=== PATIENT | female | born 1970 | race American Indian/Alaskan Native ===

== ENCOUNTER 2020-07-20 13:53 | Emergency (ER) | payer MEDICARE ==
--- NOTE | 2020-07-20 14:56 | Event Note ---
ED Screening Note ED Screening Note: SI HI that began few days ago states she has attempted overdose before states that she plans to do it again states she wants to hurt her two older sons says she was last in a psych facility last month non smoker +ETOH, socially no drug use This initial assessment/diagnostic orders/clinical plan/treatment(s) is/are subject to change based on patients health status, clinical progression and re- assessment by fellow clinical providers in the ED. Further treatment and workup at subsequent clinical providers discretion. Patient/guardian urged not to elope from the ED as their condition may be serious if not clinically assessed and managed. Initial orders include: mental health clearance 1013 called charge nurse Malik, pt needs room [facility]
[2020-07-20 15:54] LABS: Basophils % (Auto) 0.2 % (0.0-1.8); Hematocrit 34.6 % (30.3-42.9); Hemoglobin 11.6 gm/dl (10.1-14.3); Lymphocytes # (Auto) 1.2 K/mm3 (1.2-5.4); Lymphocytes % (Auto) 16.7 % (13.4-35.0); Mean Corpuscular HGB Conc 33 % (30-34); Mean Corpuscular Volume 88 fl (79-97); Monocytes # (Auto) 0.2 K/mm3 (0.0-0.8); Monocytes % (Auto) 2.8 % (0.0-7.3); Platelet Count 285 K/mm3 (140-440); Red Blood Count 3.92 M/mm3 (3.65-5.03); Red Cell Distribution Width 15.1 % (13.2-15.2)
[2020-07-20 16:07] LABS: Alanine Aminotransferase 9 units/L (7-56); Albumin 4.2 g/dL (3.9-5); Blood Urea Nitrogen 10 mg/dL (7-17); Calcium 9.6 mg/dL (8.4-10.2); Hemolysis Index 8
[2020-07-20 16:14] LABS: BUN/Creatinine Ratio 14
--- NOTE | 2020-07-20 17:27 | Emergency Department Report ---
ED Psych HPI - General Chief Complaint: Psych Stated Complaint: ANXIETY/DEPRESSION Time Seen by Provider: 07/20/20 16:20 Source: patient, EMS Mode of arrival: Ambulatory - History of Present Illness Initial Comments: Patient is a 50-year-old female that presents emergency room with multiple psychiatric complaints. Patient states that she is having suicidal and homicidal ideations, depression, anxiety. Patient states that her suicidal ideations and involve a plan to overdose with pills. Patient states she is attempted suicide in the past. Patient states she is having homicidal thoughts towards her 2 older sons and the rest of her family. Patient states her family is treating her bad right now. Patient states her family dropped off at a hotel and left her alone. Patient denies any physical complaints. Patient states that her symptoms are worsening. Patient denies hallucinations. Patient denies recent travel. Patient denies recent international travel. Pat ient denies exposure to the novel coronavirus. Patient denies sick contacts. Patient denies fever and chills. Patient denies cough. Patient denies diarrhea. Patient denies coming in contact with anybody with symptoms of the novel coronavirus. MD Complaint: suicidal ideation, feels depressed -: Sudden Associated Psychiatric Symptoms: depression, suicidal ideation, homicidal ideation, racing thoughts History of same: Yes Quality: constant Improves With: medication, therapy Worsens With: other Context: significant life stressor Associated Symptoms: denies other symptoms If Self Harm: admits thoughts of, has plan - Related Data Home Medications Medication Instructions Recorded Confirmed Last Taken Ibuprofen [Motrin] 800 mg PO Q8HR PRN 07/20/20 07/20/20 Unknown Quetiapine Fumarate [SEROquel] 400 mg PO QHS 07/20/20 07/20/20 Unknown Allergies Allergy/AdvReac Type Severity Reaction Status Date / Time No Known Allergies Allergy Verified 11/04/14 14:23 ED Review of Systems ROS: Stated complaint: ANXIETY/DEPRESSION Other details as noted in HPI Constitutional: denies: chills, fever Eyes: denies: eye pain, eye discharge, vision change ENT: denies: ear pain, throat pain Respiratory: denies: cough, shortness of breath, wheezing Cardiovascular: denies: chest pain, palpitations Endocrine: no symptoms reported Gastrointestinal: denies: abdominal pain, nausea, diarrhea Genitourinary: denies: urgency, dysuria, discharge Musculoskeletal: denies: back pain, joint swelling, arthralgia Skin: denies: rash, lesions Neurological: denies: headache, weakness, paresthesias Psychiatric: as per HPI, anxiety, depression, homicidal thoughts, suicidal thoughts. denies: auditory hallucinations, visual hallucinations Hematological/Lymphatic: denies: easy bleeding, easy bruising ED Past Medical Hx - Past Medical History Previous Medical History?: Yes Hx Psychiatric Treatment: Yes (DEPRESSION) - Surgical History Past Surgical History?: Yes Additional Surgical History: HERNIA REPAIR - Family History Family history: no significant - Social History Smoking Status: Never Smoker Substance Use Type: None - Medications Home Medications: Home Medications Medication Instructions Recorded Confirmed Last Taken Type Ibuprofen [Motrin] 800 mg PO Q8HR PRN 07/20/20 07/20/20 Unknown History Quetiapine Fumarate [SEROquel] 400 mg PO QHS 07/20/20 07/20/20 Unknown History ED Physical Exam - General Limitations: No Limitations General appearance: alert, in no apparent distress - Head Head exam: Present: atraumatic, normocephalic - Eye Eye exam: Present: normal appearance - ENT ENT exam: Present: mucous membranes moist - Neck Neck exam: Present: normal inspection - Respiratory Respiratory exam: Present: normal lung sounds bilaterally. Absent: respiratory distress, wheezes, rales - Cardiovascular Cardiovascular Exam: Present: regular rate, normal rhythm. Absent: systolic murmur, diastolic murmur, rubs, gallop - GI/Abdominal GI/Abdominal exam: Present: soft, normal bowel sounds - Extremities Exam Extremities exam: Present: normal inspection - Back Exam Back exam: Present: normal inspection - Neurological Exam Neurological exam: Present: alert, oriented X3 - Psychiatric Psychiatric exam: Present: normal affect, normal mood - Skin Skin exam: Present: warm, dry, intact, normal color. Absent: rash ED Course Vital Signs 07/20/20 07/20/20 07/20/20 14:58 15:28 19:30 Temperature 98.1 F 97.6 F 98.3 F Pulse Rate 88 96 H 102 H Respiratory 18 20 20 Rate Blood Pressure 146/80 Blood Pressure 133/72 120/74 [Left] O2 Sat by Pulse 100 98 100 Oximetry 07/20/20 07/20/20 07/21/20 21:54 22:54 01:25 Temperature 98.0 F Pulse Rate 90 Respiratory 18 18 16 Rate Blood Pressure Blood Pressure 126/71 [Left] O2 Sat by Pulse 100 Oximetry 07/21/20 07/21/20 07:52 20:03 Temperature 97.3 F L 98.4 F Pulse Rate 71 81 Respiratory 20 18 Rate Blood Pressure Blood Pressure 132/73 126/86 [Left] O2 Sat by Pulse 97 97 Oximetry - Reevaluation(s) Reevaluation #1: Initial evaluation done. Patient was already placed on 1013 in triage. Patient will remain in the ER hold and on on 1013. Patient will have labs done. 07/20/20 16:25 Reevaluation #2: Patient is medically cleared. Patient will remain in the ER as an ER hold. Patient is already on a 1013. Patient's final disposition will come from our mental health team. 07/20/20 22:50 Reevaluation #3: Patient has been examined to the general psych floor. Patient will be discharged from the ER and transported directly to our general psych floor. 07/21/20 23:12 ED Medical Decision Making - Lab Data Result diagrams: 07/20/20 15:26 07/20/20 15:26 - Medical Decision Making Patient is a 50-year-old female that presents emergency room with complaints of SI, HI, anxiety, depression. Patient was placed on a 1013 in triage. Patient's placed on a ER hold. Mental health evaluation ordered. Patient had labs done. Patient's labs are essentially unremarkable and patient is medically cleared. Patient is cleared from medical standpoint however the patient's final disposition will come from our psychiatry and mental health team. - Differential Diagnosis Suicidal ideation, homicidal ideation, depression, anxiety Critical care attestation.: If time is entered above; I have spent that time in minutes in the direct care of this critically ill patient, excluding procedure time. ED Disposition Clinical Impression: Suicidal ideations, Homicidal ideations, Anxiety Depression Qualifiers: Depression Type: unspecified Qualified Code(s): F32.9 - Major depressive disorder, single episode, unspecified Disposition: DC-01 TO HOME OR SELFCARE Is pt being admited?: No Does the pt Need Aspirin: No Condition: Stable Instructions: Managing Anxiety, Adult Additional Instructions: Patient to be discharged from the ER intake and directly to our geriatric psych floor. Referrals: PRIMARY CARE, [Primary Care Provider] - 2-3 Days Time of Disposition: 22:52
[2020-07-20 20:53] LABS: Bilirubin,Urine NEG (Negative); Blood,Urine NEG (Negative); Color,Urine Yellow (Yellow); Mucus,Urine FEW /HPF; Urobilinogen,Urine < 2.0 mg/dL (<2.0)
[2020-07-20 21:08] LABS: Amphetamine Screen,Urine Negative; Benzodiazepines Screen,Urine Negative; Cannabinoid Screen,Urine Negative; Cocaine Screen,Urine Negative; Methadone Screen,Urine Negative; Opiate Screen,Urine Negative
[2020-07-20] MEDS: IBUPROFEN 800 MG TAB PO PRN (21:54)
[2020-07-20] MEDS: QUEtiapine 200 MG TAB PO SCH (21:55)
--- NOTE | 2020-07-21 10:04 | Consultation ---
History of Present Illness - Reason for Consult Consult date: 07/21/20 Reason for consult: SI/HI - History of Present Psychiatric Illness Delmy Rodriguez is a 50y/o patient who states she came to the hospital because she felt like hurting her family and her sons. During my interview with the patient today, she is a/o x 3. She is talkative. She is cooperative. The patient says "I want to hurt my family members because they are not supporting my right now." The patient then says "I don't want to live either. They are making things worse for me." The patient says her "thoughts are richardson." She says "I can't control them." She denies illicit drug use. She says she "drinks about 2 to 3 beers daily." The patient denies hallucinations of any kind. PAST PSYCHIATRIC HISTORY Diagnoses: bipolar, depression, borderline personality disorder, anxiety Suicide attempts or Self-harm behavior: Yes Prior psychiatric hospitalizations: Yes Substance Abuse history: alcohol Previous psychiatric medications tried: depakote, seroquel Outpatient treatment: Yes PAST MEDICAL HISTORY: None reported Family Psychiatric History: None reported or documented SOCIAL HISTORY Marital Status: Single Living Arrangements: Homeless Employment Status: Disabled Access to guns/weapons: None reported Education: high school History of Abuse: None reported Legal History: denies REVIEW OF SYSTEMS Constitutional: Negative for weight loss ENT: Negative for stridor Respiratory: Negative for cough or hemoptysis All other systems reviewed and are negative MENTAL STATUS EXAMINATION General Appearance and Behavior: Age appropriate, good hygiene, wearing appropriate clothes, good eye contact Cooperation: Participating/engaged Psychomotor Behavior: Psychomotor normal Mood: "irritable" Affect and affective range: Congruent with mood Thought Process: logical Thought Content: hopelessness Speech: Normal rate, volume and rhythm Suicidal Ideation: Yes Homicidal Ideation: Yes Impulse Control: Impaired Insight and Judgment: Limited insight and judgment Memory: Normal Attention: Normal Orientation: Alert, oriented Assessment and Plan (1) Major depressive disorder) Current Visit: Yes Status: Acute TREATMENT Continue Seroquel Start Depakote DR 250mg po BID Start Prozac 10mg po daily Sitter: Defer to primary Medical: Per primary Disposition: Recommend inpatient psychiatric treatment. Will follow. Thank you for this consult. Medications and Allergies Allergies Allergy/AdvReac Type Severity Reaction Status Date / Time No Known Allergies Allergy Verified 11/04/14 14:23 Home Medications Medication Instructions Recorded Confirmed Last Taken Type Ibuprofen [Motrin] 800 mg PO Q8HR PRN 07/20/20 07/20/20 Unknown History Quetiapine Fumarate [SEROquel] 400 mg PO QHS 07/20/20 07/20/20 Unknown History Active Meds: Active Medications Ibuprofen (Ibuprofen) 800 mg PO TID PRN PRN Reason: Pain , Severe (7-10) Last Admin: 07/20/20 21:54 Dose: 800 mg Documented by: Quetiapine Fumarate (Seroquel) 400 mg PO QHS [facility] Last Admin: 07/20/20 21:55 Dose: 400 mg Documented by: Mental Status Exam - Vital signs Last Vital Signs Temp 97.3 F L 07/21/20 07:52 Pulse 71 07/21/20 07:52 Resp 20 07/21/20 07:52 BP 132/73 07/21/20 07:52 Pulse Ox 97 07/21/20 07:52 Results Result Diagrams: 07/20/20 15:26 07/20/20 15:26 Abnormal lab results 07/20/20 07/20/20 07/20/20 Range/Units 15:26 15:26 15:26 Seg Neutrophils % 80.3 H (40.0-70.0) % Salicylates < 0.3 L (2.8-20.0) mg/dL Acetaminophen 5.0 L (10.0-30.0) ug/mL All other labs normal.
[2020-07-21] MEDS: DIVALPROEX DR 250 MG TAB PO SCH ×2 (11:20→22:00)
[2020-07-21] MEDS: IBUPROFEN 800 MG TAB PO PRN ×2 (11:20→21:54)
[2020-07-21] MEDS: FLUoxetine 10 MG TAB PO SCH ×2 (11:20→11:23)
[2020-07-21 20:03] VITALS: BP 126/86
[2020-07-21] MEDS: QUEtiapine 200 MG TAB PO SCH (21:54)
== END 2020-07-21 23:16 | disposition home or self-care (01) ==
LOC: ED 13:53
DX: F41.9 Anxiety disorder, unspecified (principal); F32.9 Major depressive disorder, single episode, unspecified; Z98.890 Other specified postprocedural states; Z79.899 Other long term (current) drug therapy
CPT/HCPCS: 36415; 80053; 80307; 81001; 85025; 99284; U0003; 80320; G0480

== ENCOUNTER 2020-07-21 00:28 | Inpatient (IN) | payer MEDICARE ==
[2020-07-22] MEDS: traZODone 50 MG TAB PO SCH ×2 (03:25→21:25)
--- NOTE | 2020-07-22 07:31 | History and Physical Report ---
GP History & Physical - History of Present Illness Date of admission: 07/21/20 Date of Examination: 07/22/20 Reason for Admission: Danger to self, Severe anxiety/depression History of Present Illness: Per ED Provider Patient is a 50-year-old female that presents emergency room with multiple psychiatric complaints. Patient states that she is having suicidal and homicidal ideations, depression, anxiety. Patient states that her suicidal idea tions and involve a plan to overdose with pills. Patient states she is attempted suicide in the past. Patient states she is having homicidal thoughts towards her 2 older sons and the rest of her family. Patient states her family is treating her bad right now. Patient states her family dropped off at a hotel and left her alone. Patient denies any physical complaints. Patient states that her symptoms are worsening. Patient denies hallucinations. PSYCH HPI Patient is a 50 year single unemployed currently on SSI and homeless female with past psychiatric history of Depression, Anxiety and Borderline Personality disorder and past medical history chronic low back pain who presents to the ED with complaints of SI, HI due to depression with plan to overdose. Per patient, she reports she has been staying in a hotel since her last discharge from her last psychiatric admission. She says she is out of money, cant pay hotel bills and she had a mental and emotional breakdown and homicidal thoughts towards her family because she feels they do no care and support her enough most especially her older children. Patient reports she was in a program, was discharged last month, was not assigned a sample case porter in which she thought she would so they can help her with getting a place to stay. She attributes her mental health problems to social issues and getting a place of her own so she can be more independent but she cant do it on her own. Patient also endorses to alcohol use. PAST PSYCHIATRIC HISTORY Diagnoses: bipolar, depression, borderline personality disorder, anxiety Suicide attempts or Self-harm behavior: Yes Prior psychiatric hospitalizations: Yes Substance Abuse history: alcohol Previous psychiatric medications tried: depakote, seroquel Outpatient treatment: Yes PAST MEDICAL HISTORY: None reported Family Psychiatric History: None reported or documented SOCIAL HISTORY Marital Status: Single Living Arrangements: Homeless Employment Status: Disabled Access to guns/weapons: None reported Education: high school History of Abuse: None reported Legal History: denies REVIEW OF SYSTEMS Constitutional: Negative for weight loss ENT: Negative for stridor Respiratory: Negative for cough or hemoptysis All other systems reviewed and are negative MENTAL STATUS EXAMINATION General Appearance and Behavior: Age appropriate, good hygiene, wearing appropriate clothes, good eye contact Cooperation: Participating/engaged Psychomotor Behavior: Psychomotor normal Mood: "irritable" Affect and affective range: Congruent with mood Thought Process: logical Thought Content: hopelessness Speech: Normal rate, volume and rhythm Suicidal Ideation: Yes Homicidal Ideation: Yes Impulse Control: Impaired Insight and Judgment: Limited insight and judgment Memory: Normal Attention: Normal Orientation: Alert, oriented Assessment and Plan - Psychiatric problem (1) MDD (major depressive disorder) Current Visit: Yes Status: Acute (2) Alcohol abuse Current Visit: Yes Status: Acute Treatment Plan home meds restarted Patient admitted for inpatient psychiatric evaluation, medication adjustment and close monitoring The patient's behavior, mood, sleep and appetite will be closely monitored. Patient enrolled in individual and group therapeutic sessions and encouraged to attend. Patient provided with a safe and structured environment. Patient's physical health needs will be addressed by the Hospitalist. Hospitalist Consulted Labs including CBC, CMP, Lipid profile and Hemoglobin A1C levels ordered for baseline reference Social Assessment will be completed and the Saxophone Player will work with patient and family to ensure a suitable and safe disposition Medication adjustment will be made as clinically indicated Usual Wellness Pentecostalism/Preservation: - Start Trazodone 50 mg po QHS - Start Melatonin 5 mg po QHS to promote circadian rhythm - Start [place]-3 for brain health, reduce impulsivity, and as adjunctive treatment for mood disorder, continue upon discharge given overall benefits. - Start B1 prophylaxis with 200 mg po for 5 days The patient agreed on the treatment plan, understood the risk, benefit, alternative treatment, potential consequence of no treatment, and gave informed consent. Initial Certification I certify that the inpatient psychiatric services are required for treatment that could reasonably be expected to improve the patient's condition for aggression and irritability Estimated days: 7 Post hospital care: primary care provider, psychiatric provider The case was staffed with Dr. Haley Legal Status: Voluntary Reaction to Hospitalization: Accepting Legal Status: Voluntary Patient Problems: Current Active Problems Alcohol abuse (Acute) MDD (major depressive disorder) (Acute) Reaction to Hospitalization: Accepting Medications and Allergies Allergies Allergy/AdvReac Type Severity Reaction Status Date / Time No Known Allergies Allergy Verified 11/04/14 14:23 Home Medications Medication Instructions Recorded Confirmed Last Taken Type Ibuprofen [Motrin] 800 mg PO Q8HR PRN 07/20/20 07/22/20 Unknown History Quetiapine Fumarate [SEROquel] 400 mg PO QHS 07/20/20 07/22/20 Unknown History Budesonide/Formoterol Fumarate 1 puff INHALATION UNK 07/22/20 07/22/20 Unknown History [Symbicort 160-4.5 Mcg Inhaler] busPIRone [Buspar] 5 mg PO HS 07/22/20 07/22/20 Unknown History predniSONE [Deltasone] 20 mg PO UNK 07/22/20 07/22/20 Unknown History Active Meds: Active Medications Trazodone HCl (Trazodone 50 Mg Tab) 50 mg PO QHS [facility]O Last Admin: 07/22/20 03:25 Dose: Not Given Documented by: Results - Results Labs/Vitals: Laboratory Last Values POC Glucose 86 mg/dL (70-105) 07/22/20 01:54 Assessment and Plan - Psychiatric problem (1) MDD (major depressive disorder) Current Visit: Yes Status: Acute (2) Alcohol abuse Current Visit: Yes Status: Acute Physician Certification - Certification Statement Physician Certification Statement: This is an acknowledgement statement that JORDIN FRANCISCO is a 50 year old F who requires inpatient psychiatric admission for treatment which could reasonably be expected to improve the patient's condition for Estimated period of time patient will need to remain in the hospital: [ ] Plan for post-hospital care: [ ]
[2020-07-22] MEDS ORDERED: IBUPROFEN 800 MG TAB PO PRN (08:53)
[2020-07-22] MEDS ORDERED: IBUPROFEN 600 MG TAB PO PRN (10:00)
[2020-07-22] MEDS: VALPROIC ACID 250 MG CAP PO SCH ×2 (10:25→21:25)
[2020-07-22] MEDS: ACETAMINOPHEN 325 MG TAB PO PRN ×2 (10:25→21:24)
--- NOTE | 2020-07-22 12:13 | Consultation ---
History of Present Illness - Reason for Consult Consult date: 07/22/20 Medical Management Requesting physician: COCO RAYO - History of Present Illness 50 YO Female with Obesity with Anxiety and Depression admitted to [facility] for Psychiatric Stabilization. Patient seen and evaluated in the recreation room. Patient appears comfortable. Patient denies fever, chills, chest pain, palpitation, productive cough, skin rash, recent ill contacts, or known exposure to COVID-19. Patient resting comfortably. No reported nursing events. Past History Past Medical History: other (See HPI) Past Surgical History: hernia repair Social history: single. denies: smoking, alcohol abuse, prescription drug abuse Family history: hypertension Medications and Allergies Allergies Allergy/AdvReac Type Severity Reaction Status Date / Time No Known Allergies Allergy Verified 11/04/14 14:23 Home Medications Medication Instructions Recorded Confirmed Last Taken Type Ibuprofen [Motrin] 800 mg PO Q8HR PRN 07/20/20 07/22/20 Unknown History Quetiapine Fumarate [SEROquel] 400 mg PO QHS 07/20/20 07/22/20 Unknown History Budesonide/Formoterol Fumarate 1 puff INHALATION UNK 07/22/20 07/22/20 Unknown History [Symbicort 160-4.5 Mcg Inhaler] busPIRone [Buspar] 5 mg PO 07/22/20 07/22/20 Unknown History predniSONE [Deltasone] 20 mg PO UNK 07/22/20 07/22/20 Unknown History Active Meds: Active Medications Acetaminophen (Acetaminophen 325 Mg Tab) 650 mg PO Q12HR PRN PRN Reason: Pain, Mild (1-3) Last Admin: 07/22/20 10:25 Dose: 650 mg Documented by: Ibuprofen (Ibuprofen 600 Mg Tab) 600 mg PO BID PRN PRN Reason: Pain , Severe (7-10) Trazodone HCl (Trazodone 50 Mg Tab) 50 mg PO QHS [facility] Last Admin: 07/22/20 03:25 Dose: Not Given Documented by: Valproic Acid (Valproic Acid 250 Mg Cap) 500 mg PO BID [facility] Last Admin: 07/22/20 10:25 Dose: 500 mg Documented by: Review of Systems Constitutional: no weight loss, no weight gain, no fever, no sweats Ears, nose, mouth and throat: no ear pain, no ear discharge, no tinnitis, no nose pain, no nasal congestion Breasts: no change in shape, no swelling, no mass Cardiovascular: no chest pain, no orthopnea, no palpitations, no syncope Respiratory: no cough, no excessive sputum, no hemoptysis Gastrointestinal: no nausea, no vomiting, no diarrhea, no constipation, no hematemesis Genitourinary Female: no pelvic pain, no dysuria Rectal: no pain, no incontinence, no bleeding Musculoskeletal: no neck stiffness, no neck pain, no shooting arm pain, no arm numbness/tingling, no shooting leg pain Integumentary: no rash, no pruritis, no redness, no sores Neurological: no transient paralysis, no weakness, no parathesias, no tingling, no seizures, no tremors Psychiatric: no memory loss, no insomnia, no change in appetite Endocrine: no excessive thirst, no polydipsia, no nocturia, no excessive sweating Hematologic/Lymphatic: no easy bruising, no easy bleeding Allergic/Immunologic: no urticaria, no wheezing Exam - Constitutional Vitals: Temp Pulse Resp BP Pulse Ox 98.5 F 95 H 18 109/69 100 07/22/20 08:48 07/22/20 08:48 07/22/20 08:48 07/22/20 08:48 07/22/20 08:48 General appearance: Present: obese - EENT Eyes: Present: PERRL ENT: hearing intact, clear oral mucosa - Neck Neck: Present: supple, normal ROM - Respiratory Respiratory effort: normal Respiratory: bilateral: CTA - Cardiovascular Heart Sounds: Present: S1 & S2. Absent: rub, click - Extremities Extremities: pulses symmetrical, No edema Peripheral Pulses: within normal limits - Abdominal General gastrointestinal: Present: soft, non-tender, non-distended, normal bowel sounds Female genitourinary: Present: normal - Integumentary Integumentary: Present: clear, warm, dry - Musculoskeletal Musculoskeletal: gait normal, strength equal bilaterally - Psychiatric Psychiatric: appropriate mood/affect, intact judgment & insight - Neurologic Neurologic: CNII-XII intact, moves all extremities Results - Labs CBC & Chem 7: 07/23/20 10:18 07/23/20 10:18 Assessment and Plan - Patient Problems (1) Anxiety Current Visit: No Status: Acute Plan to address problem: Supportive care, benzodiazepine therapy as clinically indicated. (2) Obesity (BMI 30.0-34.9) Current Visit: Yes Status: Acute Plan to address problem: Balanced diet, increase physical activity at discharge, supportive care, outpatient pulmonary follow-up for sleep study.
--- NOTE | 2020-07-23 09:12 | Progress Note ---
Subjective Date of service: 07/23/20 Principal diagnosis: (1) MDD (major depressive disorder) Subjective Comment: Psych Nurse: Last evening the patient was complaining about everything she could think of. When she observed other patients "getting things" she would cause behavior to get attention. She complained that staff was treating her differently than other patients due to her skin color. she would ask to talk with the staff", privately. Last night the patient was restless. She slept off anod on. Will continue to monitor patient for safety PSYCH HPI Patient seen this a.m., review of nursing notes shows patient has been complaining mostly about everything and very demanding. Patient says she is got a lot of stuff she wants to tell me this morning, says she is very frustrated mostly about arthritis and her pain. Patient states she would like to request her room to be changed and move closer to the nurses station because she does not like to walk that far from where the current location is. Patient also complained that her family is very dysfunctional, she is to older children does not want her to stay with them, and she is having homicidal thoughts towards her children. Patient also reports not being allowed to use the phone all day yesterday states that she was speaking with her insurance company about addressing some of her social needs especially getting assigned a bilingual patient support caseworker. Patient also complained about the care aspirin she received in the ED, and the transition of the care to this unit, patient also complained about her belongings that she was not given a checklist of what she came in with to the hospital. I informed patient that I can get the patient service reps for her to make any complaints about the care she received in the ED, and I will also discussed with the nurses in making her room changed to address needs specific to her pain. Also informed patient to be respectful of others because she cannot be the only one using the phone all day or the patient would also want to communicate with the family members but she is using the phone to talk with insurance company in which she could have done that before coming to the hospital. Patient is very repetitive in a complaints talked about how she is older than me, she has more experience, that she does not have any problem but other people do not understand her. Reason for continuing inpatient psychiatric hospitalization: Concern for malingering behavior, dependent type personality disorder, and persistent homicidal thoughts towards her older children. Patient started on Seroquel, Cymbalta and will continue current medication REVIEW OF SYSTEMS Constitutional: Negative for weight loss ENT: Negative for stridor Respiratory: Negative for cough or hemoptysis All other systems reviewed and are negative MENTAL STATUS EXAMINATION General Appearance and Behavior: Age appropriate, good hygiene, wearing appropriate clothes, good eye contact Cooperation: Participating/engaged Psychomotor Behavior: Psychomotor normal Mood: "irritable" Affect and affective range: Congruent with mood Thought Process: illogical, circumstantial Thought Content: Paranoid Speech: Normal rate, volume and rhythm Suicidal Ideation: No Homicidal Ideation: Yes Impulse Control: Impaired Insight and Judgment: Limited insight and judgment Memory: Normal Attention: Normal Orientation: Alert, oriented Assessment and Plan - Psychiatric problem (1) MDD (major depressive disorder) Current Visit: Yes Status: Acute (2) Alcohol abuse Current Visit: Yes Status: Acute Treatment Plan Patient was started on Seroquel, started on Cymbalta and home meds restarted Patient admitted for inpatient psychiatric evaluation, medication adjustment and close monitoring The patient's behavior, mood, sleep and appetite will be closely monitored. Patient enrolled in individual and group therapeutic sessions and encouraged to attend. Patient provided with a safe and structured environment. Patient's physical health needs will be addressed by the Hospitalist. Hospitalist Consulted Labs including CBC, CMP, Lipid profile and Hemoglobin A1C levels ordered for baseline reference Social Assessment will be completed and the Slag Production Worker will work with patient and family to ensure a suitable and safe disposition Medication adjustment will be made as clinically indicated Usual Wellness Temple/Preservation: - Start Trazodone 50 mg po QHS - Start Melatonin 5 mg po QHS to promote circadian rhythm - Start Stuart-3 for brain health, reduce impulsivity, and as adjunctive treatment for mood disorder, continue upon discharge given overall benefits. - Start B1 prophylaxis with 200 mg po for 5 days The patient agreed on the treatment plan, understood the risk, benefit, alternative treatment, potential consequence of no treatment, and gave informed consent. Initial Certification I certify that the inpatient psychiatric services are required for treatment that could reasonably be expected to improve the patient's condition for aggression and irritability Estimated days: 6 Post hospital care: primary care provider, psychiatric provider The case was staffed with Dr. Haley Legal Status: Voluntary Reaction to Hospitalization: Accepting Legal Status: Voluntary Patient Problems: Current Active Problems Assessment and Plan - Patient Problems (1) MDD (major depressive disorder) Current Visit: Yes Status: Acute (2) Alcohol abuse Current Visit: Yes Status: Acute Medications and Allergies Allergies Allergy/AdvReac Type Severity Reaction Status Date / Time No Known Allergies Allergy Verified 11/04/14 14:23 Home Medications Medication Instructions Recorded Confirmed Last Taken Type Ibuprofen [Motrin] 800 mg PO Q8HR PRN 07/20/20 07/22/20 Unknown History Quetiapine Fumarate [SEROquel] 400 mg PO QHS 07/20/20 07/22/20 Unknown History Budesonide/Formoterol Fumarate 1 puff [facility] 07/22/20 07/22/20 Unknown History [Symbicort 160-4.5 Mcg Inhaler] busPIRone [Buspar] 5 mg PO 07/22/20 07/22/20 Unknown History predniSONE [Deltasone] 20 mg PO K 07/22/20 07/22/20 Unknown History Active Meds: Active Medications Acetaminophen (Acetaminophen 325 Mg Tab) 650 mg PO Q12HR PRN PRN Reason: Pain, Mild (1-3) Last Admin: 07/22/20 21:24 Dose: 650 mg Documented by: Ibuprofen (Ibuprofen 600 Mg Tab) 600 mg PO BID PRN PRN Reason: Pain , Severe (7-10) Trazodone HCl (Trazodone 50 Mg Tab) 50 mg PO QHS [facility] Last Admin: 07/22/20 21:25 Dose: Not Given Documented by: Valproic Acid (Valproic Acid 250 Mg Cap) 500 mg PO BID [facility] Last Admin: 07/22/20 21:25 Dose: Not Given Documented by: Results - Results Labs/Vitals: Laboratory Last Values POC Glucose 86 mg/dL (70-105) 07/22/20 01:54 Last Vital Signs Temp 98.6 F 07/23/20 08:38 Pulse 82 07/23/20 08:38 Resp 18 07/23/20 08:38 BP 112/72 07/23/20 08:38 Pulse Ox 100 07/22/20 22:00
[2020-07-23] MEDS: VALPROIC ACID 250 MG CAP PO SCH ×2 (09:13→21:14)
[2020-07-23] MEDS: ACETAMINOPHEN 325 MG TAB PO PRN (09:39)
[2020-07-23 10:38] LABS: Basophils % (Auto) 0.5 % (0.0-1.8); Eosinophils % (Auto) 0.6 % (0.0-4.3); Hematocrit 35.5 % (30.3-42.9); Hemoglobin 11.6 gm/dl (10.1-14.3); Lymphocytes # (Auto) 2.2 K/mm3 (1.2-5.4); Lymphocytes % (Auto) 33.1 % (13.4-35.0); Mean Corpuscular HGB Conc 33 % (30-34); Mean Corpuscular Volume 89 fl (79-97); Monocytes # (Auto) 0.6 K/mm3 (0.0-0.8); Monocytes % (Auto) 8.4 % (0.0-7.3); Platelet Count 239 K/mm3 (140-440); Red Cell Distribution Width 15.2 % (13.2-15.2)
[2020-07-23 11:01] LABS: Alanine Aminotransferase 9 units/L (7-56); Albumin 3.9 g/dL (3.9-5); BUN/Creatinine Ratio 18; Blood Urea Nitrogen 14 mg/dL (7-17); Calcium 9.6 mg/dL (8.4-10.2); Chol/HDL Ratio 3.46 %; HDL Cholesterol 60 mg/dL (40-59); Hemolysis Index 6; LDL Cholesterol,Direct 148 mg/dL (50-130)
[2020-07-23] MEDS: DULoxetine 30 MG CAP PO SCH (11:26)
--- NOTE | 2020-07-23 20:22 | Progress Note ---
Assessment and Plan - Patient Problems (1) Anxiety Current Visit: No Status: Acute Plan to address problem: Supportive care, benzodiazepine therapy as clinically indicated. (2) Obesity (BMI 30.0-34.9) Current Visit: Yes Status: Acute Plan to address problem: Balanced diet, increase physical activity at discharge, supportive care, outpatient pulmonary follow-up for sleep study. History Interval history: 50 YO Female with Obesity with Anxiety and Depression admitted to [facility] for Psychiatric Stabilization. Patient seen and evaluated in the recreation room. Patient appears comfortable. Patient denies any new complaints at this time. Patient resting comfortably. No reported nursing events. Hospitalist Physical - Constitutional Vitals: Temp Pulse Resp BP Pulse Ox 98.6 F 82 18 112/72 100 07/23/20 08:38 07/23/20 08:38 07/23/20 08:38 07/23/20 08:38 07/22/20 22:00 General appearance: Present: obese - EENT Eyes: Present: PERRL ENT: hearing intact - Neck Neck: Present: supple - Respiratory Respiratory effort: normal Respiratory: bilateral: CTA - Cardiovascular Rhythm: regular Heart Sounds: Present: S1 & S2 - Extremities Extremities: no ischemia Peripheral Pulses: within normal limits - Abdominal General gastrointestinal: soft, non-tender, non-distended - Integumentary Integumentary: Present: clear, dry - Psychiatric Psychiatric: cooperative - Neurologic Neurologic: CNII-XII intact Results - Labs CBC & Chem 7: 07/23/20 10:18 07/23/20 10:18 Labs: Laboratory Last Values WBC 6.6 K/mm3 (4.5-11.0) 07/23/20 10:18 RBC 4.00 M/mm3 (3.65-5.03) 07/23/20 10:18 Hgb 11.6 gm/dl (10.1-14.3) 07/23/20 10:18 Hct 35.5 % (30.3-42.9) 07/23/20 10:18 MCV 89 fl (79-97) 07/23/20 10:18 MCH 29 pg (28-32) 07/23/20 10:18 MCHC 33 % (30-34) 07/23/20 10:18 RDW 15.2 % (13.2-15.2) 07/23/20 10:18 Plt Count 239 K/mm3 (140-440) 07/23/20 10:18 Lymph % (Auto) 33.1 % (13.4-35.0) 07/23/20 10:18 Miner % (Auto) 8.4 % (0.0-7.3) H 07/23/20 10:18 Eos % (Auto) 0.6 % (0.0-4.3) 07/23/20 10:18 Baso % (Auto) 0.5 % (0.0-1.8) 07/23/20 10:18 Lymph # (Auto) 2.2 K/mm3 (1.2-5.4) 07/23/20 10:18 Miner # (Auto) 0.6 K/mm3 (0.0-0.8) 07/23/20 10:18 Eos # (Auto) 0.0 K/mm3 (0.0-0.4) 07/23/20 10:18 Baso # (Auto) 0.0 K/mm3 (0.0-0.1) 07/23/20 10:18 Seg Neutrophils % 57.4 % (40.0-70.0) 07/23/20 10:18 Seg Neutrophils # 3.8 K/mm3 (1.8-7.7) 07/23/20 10:18 Sodium 138 mmol/L (137-145) 07/23/20 10:18 Potassium 4.6 mmol/L (3.6-5.0) 07/23/20 10:18 Chloride 100.8 mmol/L (98-107) 07/23/20 10:18 Carbon Dioxide 33 mmol/L (22-30) H D 07/23/20 10:18 Anion Gap 9 mmol/L 07/23/20 10:18 BUN 14 mg/dL (7-17) 07/23/20 10:18 Creatinine 0.8 mg/dL (0.6-1.2) 07/23/20 10:18 Estimated GFR > 60 ml/min 07/23/20 10:18 BUN/Creatinine Ratio 18 % 07/23/20 10:18 Glucose 85 mg/dL (65-100) 07/23/20 10:18 POC Glucose 86 mg/dL (70-105) 07/22/20 01:54 Hemoglobin A1c 5.3 % (4-6) 07/23/20 10:18 Calcium 9.6 mg/dL (8.4-10.2) 07/23/20 10:18 Total Bilirubin 0.30 mg/dL (0.1-1.2) 07/23/20 10:18 AST 12 units/L (5-40) 07/23/20 10:18 ALT 9 units/L (7-56) 07/23/20 10:18 Alkaline Phosphatase 56 units/L (35-129) 07/23/20 10:18 Total Protein 7.1 g/dL (6.3-8.2) 07/23/20 10:18 Albumin 3.9 g/dL (3.9-5) 07/23/20 10:18 Albumin/Globulin Ratio 1.2 % 07/23/20 10:18 Triglycerides 169 mg/dL (2-149) H 07/23/20 10:18 Cholesterol 208 mg/dL (50-199) H 07/23/20 10:18 LDL Cholesterol Direct 148 mg/dL (50-130) H 07/23/20 10:18 HDL Cholesterol 60 mg/dL (40-59) H 07/23/20 10:18 Cholesterol/HDL Ratio 3.46 % 07/23/20 10:18 Irwin/IV: Voiding Method Toilet Active Medications - Current Medications Current Medications: Generic Name Dose Route Start Last Admin Trade Name Freq PRN Reason Stop Dose Admin Acetaminophen 650 mg 07/22/20 09:30 07/23/20 09:39 Acetaminophen 325 Mg Tab PO 650 mg Q12HR PRN Administration Pain, Mild (1-3) Buspirone HCl 5 mg 07/23/20 22:00 Buspirone 5 Mg Tab PO HS ANGELO Duloxetine HCl 30 mg 07/23/20 11:00 07/23/20 11:26 Duloxetine 30 Mg Cap PO 30 mg QDAY ANGELO Administration Ibuprofen 600 mg 07/22/20 10:00 Ibuprofen 600 Mg Tab PO BID PRN Pain , Severe (7-10) Quetiapine Fumarate 400 mg 07/23/20 22:00 Quetiapine 200 Mg Tab PO QHS ANGEOL Trazodone HCl 50 mg 07/22/20 02:00 07/22/20 21:25 Trazodone 50 Mg Tab PO Not Given QHS ANGELO Valproic Acid 500 mg 07/22/20 10:00 07/23/20 09:13 Valproic Acid 250 Mg Cap PO 500 mg BID ANGELO Administration
[2020-07-23] MEDS: traZODone 50 MG TAB PO SCH (21:14)
[2020-07-23] MEDS: busPIRone 5 MG TAB PO SCH (21:14)
[2020-07-23] MEDS: QUEtiapine 200 MG TAB PO SCH (21:14)
[2020-07-23] MEDS ORDERED: NON-FORMULARY EACH (Quetiapine Fumarate [Seroquel] 400 MG Tablet) PO SCH (22:00)
[2020-07-24] MEDS: VALPROIC ACID 250 MG CAP PO SCH ×3 (09:05→22:00)
[2020-07-24] MEDS: DULoxetine 30 MG CAP PO SCH (09:06)
[2020-07-24] MEDS: ACETAMINOPHEN 325 MG TAB PO PRN (09:18)
--- NOTE | 2020-07-24 09:38 | Progress Note ---
Subjective Date of service: 07/24/20 Principal diagnosis: (1) MDD (major depressive disorder) Subjective Comment: Psych Nurse: Pt non-compliant with medications. Refused Depakote, Buspar and Trazodone. "Y'all don't know what you are doing. Y'all want to kill me." Rested without incident, though. Will continue to monitor. PSYCH HPI Patient seen this morning while she was seated in a [facility] chair in the activity room, greeted the patient. I asked patient how she is feeling patient reports she is feeling a little bit better, also inquired with patient why she refused to take some of her medications yesterday, report that she is above age 50 so she knows not to take care of herself better and that she did not want to take all the ports and they were giving her. I informed the patient she was already taking those medications prior to coming here for example to Depakote of 1000, which was split into 500 twice a day. Patient then stated that today is Saturday, she does not like the vibe of my presence and the attitude of the staff. I informed patient that if she is not compliant with medication, and adhering to current treatment regiment and she does not need to be here further, and I will discuss with social work to start making discharge plans. Also informed patient what each specific medication is being used for. Reason for continuing inpatient psychiatric hospitalization: Patient is noncompliant with both medication and treatment regimen, patient has been demanding, needy and not cooperative with both nursing and social work team as seen in notes. I informed patient about being here on a voluntary status, and if she does not want to be managed and not take medications then she does not have to be here, also she reports she is doing better. REVIEW OF SYSTEMS Constitutional: Negative for weight loss ENT: Negative for stridor Respiratory: Negative for cough or hemoptysis All other systems reviewed and are negative MENTAL STATUS EXAMINATION General Appearance and Behavior: Age appropriate, good hygiene, wearing appropriate clothes, good eye contact Cooperation: Participating/engaged Psychomotor Behavior: Psychomotor normal Mood: "irritable" Affect and affective range: Congruent with mood Thought Process: circumstantial Thought Content: Paranoid, Speech: Normal rate, volume and rhythm Suicidal Ideation: No Homicidal Ideation: n/a Impulse Control: Impaired Insight and Judgment: Limited insight and judgment Memory: Normal Attention: Normal Orientation: Alert, oriented Assessment and Plan - Psychiatric problem (1) MDD (major depressive disorder) Current Visit: Yes Status: Acute (2) Alcohol abuse Current Visit: Yes Status: Acute Treatment Plan Will plan for safety discharge tomorrow. Patient admitted for inpatient psychiatric evaluation, medication adjustment and close monitoring The patient's behavior, mood, sleep and appetite will be closely monitored. Patient enrolled in individual and group therapeutic sessions and encouraged to attend. Patient provided with a safe and structured environment. Patient's physical health needs will be addressed by the Hospitalist. Hospitalist Consulted Labs including CBC, CMP, Lipid profile and Hemoglobin A1C levels ordered for baseline reference Social Assessment will be completed and the Warehouse Clerk will work with patient and family to ensure a suitable and safe disposition Medication adjustment will be made as clinically indicated Usual Wellness [facility] [employer]/Preservation: - Start Trazodone 50 mg po QHS - Start Melatonin 5 mg po QHS to promote circadian rhythm - Start Langtry-3 for brain health, reduce impulsivity, and as adjunctive treatment for mood disorder, continue upon discharge given overall benefits. - Start B1 prophylaxis with 200 mg po for 5 days The patient agreed on the treatment plan, understood the risk, benefit, alternative treatment, potential consequence of no treatment, and gave informed consent. Initial Certification I certify that the inpatient psychiatric services are required for treatment that could reasonably be expected to improve the patient's condition for aggression and irritability Estimated days: 5 Post hospital care: primary care provider, psychiatric provider The case was staffed with Dr. Haley Legal Status: Voluntary Reaction to Hospitalization: Accepting Legal Status: Voluntary Patient Problems: Current Active Problems Assessment and Plan - Patient Problems (1) MDD (major depressive disorder) Current Visit: Yes Status: Acute (2) Alcohol abuse Current Visit: Yes Status: Acute Medications and Allergies Allergies Allergy/AdvReac Type Severity Reaction Status Date / Time No Known Allergies Allergy Verified 11/04/14 14:23 Home Medications Medication Instructions Recorded Confirmed Last Taken Type Ibuprofen [Motrin] 800 mg PO Q8HR PRN 07/20/20 07/22/20 Unknown History Quetiapine Fumarate [SEROquel] 400 mg PO QHS 07/20/20 07/22/20 Unknown History Budesonide/Formoterol Fumarate 1 puff INHALATION [facility]K 07/22/20 07/22/20 Unknown History [Symbicort 160-4.5 Mcg Inhaler] busPIRone [Buspar] 5 mg PO HS 07/22/20 07/22/20 Unknown History predniSONE [Deltasone] 20 mg PO UNK 07/22/20 07/22/20 Unknown History Active Meds: Active Medications Acetaminophen (Acetaminophen 325 Mg Tab) 650 mg PO Q12HR PRN PRN Reason: Pain, Mild (1-3) Last Admin: 07/24/20 09:18 Dose: 650 mg Documented by: Buspirone HCl (Buspirone 5 Mg Tab) [address] [facility] Last Admin: 07/23/20 21:14 Dose: Not Given Documented by: Duloxetine HCl (Duloxetine 30 Mg Cap) 30 mg PO QDAY [facility] Last Admin: 07/24/20 09:06 Dose: Not Given Documented by: Ibuprofen (Ibuprofen 600 Mg Tab) 600 mg PO BID PRN PRN Reason: Pain , Severe (7-10) Quetiapine Fumarate (Quetiapine 200 Mg Tab) 400 mg PO QHS [facility] Last Admin: 07/23/20 21:14 Dose: 400 mg Documented by: Trazodone HCl (Trazodone 50 Mg Tab) 50 mg PO QHS [facility] Last Admin: 07/23/20 21:14 Dose: Not Given Documented by: Valproic Acid (Valproic Acid 250 Mg Cap) 500 mg PO BID [facility] Last Admin: 07/24/20 09:05 Dose: 500 mg Documented by: Results - Results Labs/Vitals: Laboratory Last Values WBC 6.6 K/mm3 (4.5-11.0) 07/23/20 10:18 RBC 4.00 M/mm3 (3.65-5.03) 07/23/20 10:18 Hgb 11.6 gm/dl (10.1-14.3) 07/23/20 10:18 Hct 35.5 % (30.3-42.9) 07/23/20 10:18 MCV 89 fl (79-97) 07/23/20 10:18 MCH 29 pg (28-32) 07/23/20 10:18 MCHC 33 % (30-34) 07/23/20 10:18 RDW 15.2 % (13.2-15.2) 07/23/20 10:18 Plt Count 239 K/mm3 (140-440) 07/23/20 10:18 Lymph % (Auto) 33.1 % (13.4-35.0) 07/23/20 10:18 Sandoval % (Auto) 8.4 % (0.0-7.3) H 07/23/20 10:18 Eos % (Auto) 0.6 % (0.0-4.3) 07/23/20 10:18 Baso % (Auto) 0.5 % (0.0-1.8) 07/23/20 10:18 Lymph # (Auto) 2.2 K/mm3 (1.2-5.4) 07/23/20 10:18 Sandoval # (Auto) 0.6 K/mm3 (0.0-0.8) 07/23/20 10:18 Eos # (Auto) 0.0 K/mm3 (0.0-0.4) 07/23/20 10:18 Baso # (Auto) 0.0 K/mm3 (0.0-0.1) 07/23/20 10:18 Seg Neutrophils % 57.4 % (40.0-70.0) 07/23/20 10:18 Seg Neutrophils # 3.8 K/mm3 (1.8-7.7) 07/23/20 10:18 Sodium 138 mmol/L (137-145) 07/23/20 10:18 Potassium 4.6 mmol/L (3.6-5.0) 07/23/20 10:18 Chloride 100.8 mmol/L (98-107) 07/23/20 10:18 Carbon Dioxide 33 mmol/L (22-30) H D 07/23/20 10:18 Anion Gap 9 mmol/L 07/23/20 10:18 BUN 14 mg/dL (7-17) 07/23/20 10:18 Creatinine 0.8 mg/dL (0.6-1.2) 07/23/20 10:18 Estimated GFR > 60 ml/min 07/23/20 10:18 BUN/Creatinine Ratio 18 % 07/23/20 10:18 Glucose 85 mg/dL (65-100) 07/23/20 10:18 POC Glucose 86 mg/dL (70-105) 07/22/20 01:54 Hemoglobin A1c 5.3 % (4-6) 07/23/20 10:18 Calcium 9.6 mg/dL (8.4-10.2) 07/23/20 10:18 Total Bilirubin 0.30 mg/dL (0.1-1.2) 07/23/20 10:18 AST 12 units/L (5-40) 07/23/20 10:18 ALT 9 units/L (7-56) 07/23/20 10:18 Alkaline Phosphatase 56 units/L (35-129) 07/23/20 10:18 Total Protein 7.1 g/dL (6.3-8.2) 07/23/20 10:18 Albumin 3.9 g/dL (3.9-5) 07/23/20 10:18 Albumin/Globulin Ratio 1.2 % 07/23/20 10:18 Triglycerides 169 mg/dL (2-149) H 07/23/20 10:18 Cholesterol 208 mg/dL (50-199) H 07/23/20 10:18 LDL Cholesterol Direct 148 mg/dL (50-130) H 07/23/20 10:18 HDL Cholesterol 60 mg/dL (40-59) H 07/23/20 10:18 Cholesterol/HDL Ratio 3.46 % 07/23/20 10:18 Last Vital Signs Temp 98.0 F 07/24/20 07:06 Pulse 68 07/24/20 07:06 Resp 16 07/24/20 07:06 BP 104/60 07/24/20 07:06 Pulse Ox 98 07/24/20 07:06
[2020-07-24] MEDS: traZODone 50 MG TAB PO SCH ×2 (21:44→22:01)
[2020-07-24] MEDS: QUEtiapine 200 MG TAB PO SCH (21:44)
[2020-07-24] MEDS: busPIRone 5 MG TAB PO SCH ×2 (21:44→22:00)
--- NOTE | 2020-07-25 07:35 | Progress Note ---
Subjective Date of service: 07/25/20 Principal diagnosis: (1) MDD (major depressive disorder) Subjective Comment: Psych Nurse: Last evening the patient was calm. She had mostly appropriate interactions. She is focused on staying in the hospital. She inquired how to file an appeal at the time of her discharge. Patient is not forthcoming with answers regarding if she is suicidal. She denies ah/vh but remains paranoid. She wants to see the packages of her medications. This travel writer allows her to read them. She takes Seroquel 400mg but refuses the depakote, trazodone, and Buspar. Patient is educated on the usage of each. She states she "knows what to take." Will continue to monitor patient for safety. PSYCH HPI Patient seen this morning while in room, reports having a very nice night says she dreamt of having a good day, Patient denies SI thoughts, but endorses or HI thoughts are intertmittent, sometimes there and sometimes gone towards are kids but says its july, time for a happy family. Patient acknowledged not taking her meds mostly in the evening because she feels she is getting too much, I informed patient about her subtherapeutic valproate levels which helps with her mood swings, pt says she will be more compliant with meds. Reason for continuing inpatient psychiatric hospitalization: Deparkote levels subtherapeutic, Intermittent HI thoughts, resolution of SI, Patient has consistently being noncompliant with her medications and treatment regimen. Patient acknowledges and states she would be more compliant with medications. REVIEW OF SYSTEMS Constitutional: Negative for weight loss ENT: Negative for stridor Respiratory: Negative for cough or hemoptysis All other systems reviewed and are negative MENTAL STATUS EXAMINATION General Appearance and Behavior: Age appropriate, good hygiene, wearing appropriate clothes, good eye contact Cooperation: Participating/engaged Psychomotor Behavior: Psychomotor normal Mood: "irritable" Affect and affective range: Congruent with mood Thought Process: circumstantial Thought Content: Paranoid, Speech: Normal rate, volume and rhythm Suicidal Ideation: No Homicidal Ideation: Intermittent Impulse Control: Impaired Insight and Judgment: Limited insight and judgment Memory: Normal Attention: Normal Orientation: Alert, oriented Assessment and Plan - Psychiatric problem (1) MDD (major depressive disorder) Current Visit: Yes Status: Acute (2) Alcohol abuse Current Visit: Yes Status: Acute Treatment Plan. Deparkote 1000QAM, 500 QHS, discontinued trazodone and also buspar. Patient admitted for inpatient psychiatric evaluation, medication adjustment and close monitoring The patient's behavior, mood, sleep and appetite will be closely monitored. Patient enrolled in individual and group therapeutic sessions and encouraged to attend. Patient provided with a safe and structured environment. Patient's physical health needs will be addressed by the Hospitalist. Hospitalist Consulted Labs including CBC, CMP, Lipid profile and Hemoglobin A1C levels ordered for baseline reference Social Assessment will be completed and the Title I Teacher will work with patient and family to ensure a suitable and safe disposition Medication adjustment will be made as clinically indicated Usual Wellness Spiritism/Preservation: - Start Trazodone 50 mg po QHS - Start Melatonin 5 mg po QHS to promote circadian rhythm - Start [place]-3 for brain health, reduce impulsivity, and as adjunctive treatment for mood disorder, continue upon discharge given overall benefits. - Start B1 prophylaxis with 200 mg po for 5 days The patient agreed on the treatment plan, understood the risk, benefit, alternative treatment, potential consequence of no treatment, and gave informed consent. Initial Certification I certify that the inpatient psychiatric services are required for treatment that could reasonably be expected to improve the patient's condition for aggression and irritability Estimated days: 3 Post hospital care: primary care provider, psychiatric provider The case was staffed with Dr. Haley Legal Status: Voluntary Reaction to Hospitalization: Accepting Legal Status: Voluntary Patient Problems: Current Active Problems Assessment and Plan - Patient Problems (1) MDD (major depressive disorder) Current Visit: Yes Status: Acute (2) Alcohol abuse Current Visit: Yes Status: Acute Medications and Allergies Allergies Allergy/AdvReac Type Severity Reaction Status Date / Time No Known Allergies Allergy Verified 11/04/14 14:23 Home Medications Medication Instructions Recorded Confirmed Last Taken Type Ibuprofen [Motrin] 800 mg PO Q8HR PRN 07/20/20 07/22/20 Unknown History Quetiapine Fumarate [SEROquel] 400 mg PO QHS 07/20/20 07/22/20 Unknown History Budesonide/Formoterol Fumarate 1 puff INHALATION UNK 07/22/20 07/22/20 Unknown History [Symbicort 160-4.5 Mcg Inhaler] busPIRone [Buspar] 5 mg PO HS 07/22/20 07/22/20 Unknown History predniSONE [Deltasone] 20 mg PO UNK 07/22/20 07/22/20 Unknown History Active Meds: Active Medications Acetaminophen (Acetaminophen 325 Mg Tab) 650 mg PO Q12HR PRN PRN Reason: Pain, Mild (1-3) Last Admin: 07/24/20 09:18 Dose: 650 mg Documented by: Buspirone HCl (Buspirone 5 Mg Tab) 5 mg PO HS [facility] Last Admin: 07/24/20 22:00 Dose: Not Given Documented by: Duloxetine HCl (Duloxetine 30 Mg Cap) 30 mg PO QDAY [facility] Last Admin: 07/24/20 09:06 Dose: Not Given Documented by: Ibuprofen (Ibuprofen 600 Mg Tab) 600 mg PO BID PRN PRN Reason: Pain , Severe (7-10) Quetiapine Fumarate (Quetiapine 200 Mg Tab) 400 mg PO QHS [facility] Last Admin: 07/24/20 21:44 Dose: 400 mg Documented by: Trazodone HCl (Trazodone 50 Mg Tab) 50 mg PO QHS [facility] Last Admin: 07/24/20 22:01 Dose: Not Given Documented by: Valproic Acid (Valproic Acid 250 Mg Cap) 500 mg PO BID [facility] Last Admin: 07/24/20 22:00 Dose: Not Given Documented by: Results - Results Labs/Vitals: Laboratory Last Values WBC 6.6 K/mm3 (4.5-11.0) 07/23/20 10:18 RBC 4.00 M/mm3 (3.65-5.03) 07/23/20 10:18 Hgb 11.6 gm/dl (10.1-14.3) 07/23/20 10:18 Hct 35.5 % (30.3-42.9) 07/23/20 10:18 MCV 89 fl (79-97) 07/23/20 10:18 MCH 29 pg (28-32) 07/23/20 10:18 MCHC 33 % (30-34) 07/23/20 10:18 RDW 15.2 % (13.2-15.2) 07/23/20 10:18 Plt Count 239 K/mm3 (140-440) 07/23/20 10:18 Lymph % (Auto) 33.1 % (13.4-35.0) 07/23/20 10:18 [place] % (Auto) 8.4 % (0.0-7.3) H 07/23/20 10:18 Eos % (Auto) 0.6 % (0.0-4.3) 07/23/20 10:18 Baso % (Auto) 0.5 % (0.0-1.8) 07/23/20 10:18 Lymph # (Auto) 2.2 K/mm3 (1.2-5.4) 07/23/20 10:18 [place] # (Auto) 0.6 K/mm3 (0.0-0.8) 07/23/20 10:18 Eos # (Auto) 0.0 K/mm3 (0.0-0.4) 07/23/20 10:18 Baso # (Auto) 0.0 K/mm3 (0.0-0.1) 07/23/20 10:18 Seg Neutrophils % 57.4 % (40.0-70.0) 07/23/20 10:18 Seg Neutrophils # 3.8 K/mm3 (1.8-7.7) 07/23/20 10:18 Sodium 138 mmol/L (137-145) 07/23/20 10:18 Potassium 4.6 mmol/L (3.6-5.0) 07/23/20 10:18 Chloride 100.8 mmol/L (98-107) 07/23/20 10:18 Carbon Dioxide 33 mmol/L (22-30) H D 07/23/20 10:18 Anion Gap 9 mmol/L 07/23/20 10:18 BUN 14 mg/dL (7-17) 07/23/20 10:18 Creatinine 0.8 mg/dL (0.6-1.2) 07/23/20 10:18 Estimated GFR > 60 ml/min 07/23/20 10:18 BUN/Creatinine Ratio 18 % 07/23/20 10:18 Glucose 85 mg/dL (65-100) 07/23/20 10:18 POC Glucose 86 mg/dL (70-105) 07/22/20 01:54 Hemoglobin A1c 5.3 % (4-6) 07/23/20 10:18 Calcium 9.6 mg/dL (8.4-10.2) 07/23/20 10:18 Total Bilirubin 0.30 mg/dL (0.1-1.2) 07/23/20 10:18 AST 12 units/L (5-40) 07/23/20 10:18 ALT 9 units/L (7-56) 07/23/20 10:18 Alkaline Phosphatase 56 units/L (35-129) 07/23/20 10:18 Total Protein 7.1 g/dL (6.3-8.2) 07/23/20 10:18 Albumin 3.9 g/dL (3.9-5) 07/23/20 10:18 Albumin/Globulin Ratio 1.2 % 07/23/20 10:18 Triglycerides 169 mg/dL (2-149) H 07/23/20 10:18 Cholesterol 208 mg/dL (50-199) H 07/23/20 10:18 LDL Cholesterol Direct 148 mg/dL (50-130) H 07/23/20 10:18 HDL Cholesterol 60 mg/dL (40-59) H 07/23/20 10:18 Cholesterol/HDL Ratio 3.46 % 07/23/20 10:18 Valproic Acid 45.6 ug/mL (50-100) L 07/24/20 19:54 Last Vital Signs Temp 98.4 F 07/24/20 19:45 Pulse 86 07/24/20 19:45 Resp 16 07/24/20 19:45 BP 116/77 07/24/20 19:45 Pulse Ox 98 07/24/20 19:45
[2020-07-25] MEDS: VALPROIC ACID 250 MG CAP PO SCH ×2 (10:09→21:26)
[2020-07-25] MEDS: DULoxetine 30 MG CAP PO SCH (10:12)
[2020-07-25] MEDS: ACETAMINOPHEN 325 MG TAB PO PRN ×2 (10:46→21:33)
--- NOTE | 2020-07-25 20:27 | Progress Note ---
Assessment and Plan - Patient Problems (1) Anxiety Current Visit: No Status: Acute Plan to address problem: Supportive care, benzodiazepine therapy as clinically indicated. (2) Obesity (BMI 30.0-34.9) Current Visit: Yes Status: Acute Plan to address problem: Balanced diet, increase physical activity at discharge, supportive care, outpatient pulmonary follow-up for sleep study. History Interval history: 50 YO Female with Obesity with Anxiety and Depression admitted to [facility] for Psychiatric Stabilization. Patient seen and evaluated in the recreation room. Patient appears comfortable. Patient denies any new complaints at this time. Patient resting comfortably. No reported nursing events. Hospitalist Physical - Constitutional Vitals: Temp Pulse Resp BP Pulse Ox 98.9 F 107 H 18 122/71 97 07/25/20 08:38 07/25/20 08:38 07/25/20 08:38 07/25/20 08:38 07/25/20 08:38 General appearance: Present: no acute distress, obese - EENT Eyes: Present: PERRL ENT: hearing intact - Neck Neck: Present: supple - Respiratory Respiratory effort: normal Respiratory: bilateral: CTA - Cardiovascular Rhythm: regular Heart Sounds: Present: S1 & S2 - Extremities Extremities: no ischemia Peripheral Pulses: within normal limits - Abdominal General gastrointestinal: soft, non-tender, non-distended - Integumentary Integumentary: Present: clear, dry - Psychiatric Psychiatric: cooperative - Neurologic Neurologic: CNII-XII intact Results - Labs CBC & Chem 7: 07/23/20 10:18 07/23/20 10:18 Labs: Laboratory Last Values WBC 6.6 K/mm3 (4.5-11.0) 07/23/20 10:18 RBC 4.00 M/mm3 (3.65-5.03) 07/23/20 10:18 Hgb 11.6 gm/dl (10.1-14.3) 07/23/20 10:18 Hct 35.5 % (30.3-42.9) 07/23/20 10:18 MCV 89 fl (79-97) 07/23/20 10:18 MCH 29 pg (28-32) 07/23/20 10:18 MCHC 33 % (30-34) 07/23/20 10:18 RDW 15.2 % (13.2-15.2) 07/23/20 10:18 Plt Count 239 K/mm3 (140-440) 07/23/20 10:18 Lymph % (Auto) 33.1 % (13.4-35.0) 07/23/20 10:18 [place] % (Auto) 8.4 % (0.0-7.3) H 07/23/20 10:18 Eos % (Auto) 0.6 % (0.0-4.3) 07/23/20 10:18 Baso % (Auto) 0.5 % (0.0-1.8) 07/23/20 10:18 Lymph # (Auto) 2.2 K/mm3 (1.2-5.4) 07/23/20 10:18 [place] # (Auto) 0.6 K/mm3 (0.0-0.8) 07/23/20 10:18 Eos # (Auto) 0.0 K/mm3 (0.0-0.4) 07/23/20 10:18 Baso # (Auto) 0.0 K/mm3 (0.0-0.1) 07/23/20 10:18 Seg Neutrophils % 57.4 % (40.0-70.0) 07/23/20 10:18 Seg Neutrophils # 3.8 K/mm3 (1.8-7.7) 07/23/20 10:18 Sodium 138 mmol/L (137-145) 07/23/20 10:18 Potassium 4.6 mmol/L (3.6-5.0) 07/23/20 10:18 Chloride 100.8 mmol/L (98-107) 07/23/20 10:18 Carbon Dioxide 33 mmol/L (22-30) H D 07/23/20 10:18 Anion Gap 9 mmol/L 07/23/20 10:18 BUN 14 mg/dL (7-17) 07/23/20 10:18 Creatinine 0.8 mg/dL (0.6-1.2) 07/23/20 10:18 Estimated GFR > 60 ml/min 07/23/20 10:18 BUN/Creatinine Ratio 18 % 07/23/20 10:18 Glucose 85 mg/dL (65-100) 07/23/20 10:18 POC Glucose 86 mg/dL (70-105) 07/22/20 01:54 Hemoglobin A1c 5.3 % (4-6) 07/23/20 10:18 Calcium 9.6 mg/dL (8.4-10.2) 07/23/20 10:18 Total Bilirubin 0.30 mg/dL (0.1-1.2) 07/23/20 10:18 AST 12 units/L (5-40) 07/23/20 10:18 ALT 9 units/L (7-56) 07/23/20 10:18 Alkaline Phosphatase 56 units/L (35-129) 07/23/20 10:18 Total Protein 7.1 g/dL (6.3-8.2) 07/23/20 10:18 Albumin 3.9 g/dL (3.9-5) 07/23/20 10:18 Albumin/Globulin Ratio 1.2 % 07/23/20 10:18 Triglycerides 169 mg/dL (2-149) H 07/23/20 10:18 Cholesterol 208 mg/dL (50-199) H 07/23/20 10:18 LDL Cholesterol Direct 148 mg/dL (50-130) H 07/23/20 10:18 HDL Cholesterol 60 mg/dL (40-59) H 07/23/20 10:18 Cholesterol/HDL Ratio 3.46 % 07/23/20 10:18 Valproic Acid 45.6 ug/mL (50-100) L 07/24/20 19:54 [place]/IV: Voiding Method Toilet Active Medications - Current Medications Current Medications: Generic Name Dose Route Start Last Admin Trade Name Freq PRN Reason Stop Dose Admin Acetaminophen 650 mg 07/22/20 09:30 07/25/20 10:46 Acetaminophen 325 Mg Tab PO 650 mg Q12HR PRN Administration Pain, Mild (1-3) Duloxetine HCl 30 mg 07/23/20 11:00 07/25/20 10:12 Duloxetine 30 Mg Cap PO Not Given QDAY ANGELO Ibuprofen 600 mg 07/22/20 10:00 Ibuprofen 600 Mg Tab PO BID PRN Pain , Severe (7-10) Quetiapine Fumarate 400 mg 07/23/20 22:00 07/24/20 21:44 Quetiapine 200 Mg Tab PO 400 mg QHS ANGELO Administration Valproic Acid 1,000 mg 07/25/20 10:00 07/25/20 10:09 Valproic Acid 250 Mg Cap PO Not Given QAM ANGELO Valproic Acid 500 mg 07/25/20 22:00 Valproic Acid 250 Mg Cap PO QHS ANGELO
[2020-07-25] MEDS: QUEtiapine 200 MG TAB PO SCH (21:26)
--- NOTE | 2020-07-26 07:36 | Progress Note ---
Subjective Date of service: 07/26/20 Principal diagnosis: (1) MDD (major depressive disorder) Subjective Comment: Psych Nurse:Pt remains paranoid and suspicious, and non-compliant with medication. Have the habit of reading the labels on each medication one by one before she selectively takes what she want to take. No acute distress observed and none reported. Pt received in the day room interacting appropriately. Denies pain, SI or HI. Anxious to take her HS med and want to go to bed. No acute distress observed and none reported. Will continue to monitor. PSYCH HPI Ms. Brock continues to be uncooperative, reports she is older, above 50 and knows how to take care of herself better that we just over medicating her. Patient says her family is dysfuncitonal including her children and she plans to live longer till 89 years of age hence why she wont be needing that much medication and she is no longer suicidal. Patient states she is starting a new career next month, she will not tell me what it is because she does nt like me, and today she is in a good mood, cos talking to me always ruins her mood. Asked patient why she was rude towards staff, patient reports they are not professional too, and she knows better than them. Reason for continuing inpatient psychiatric hospitalization: Patient continues to be noncompliant with her medications and treatment regimen. She denies SI, and resolving HI, which was primary reason for admission, SW to involve police about HI towards family pior to discharge. Plan to discharge patient tomorrow. REVIEW OF SYSTEMS Constitutional: Negative for weight loss ENT: Negative for stridor Respiratory: Negative for cough or hemoptysis All other systems reviewed and are negative MENTAL STATUS EXAMINATION General Appearance and Behavior: Age appropriate, good hygiene, wearing appropriate clothes, good eye contact Cooperation: guarded, uncooperative Psychomotor Behavior: Psychomotor normal Mood: "im good" Affect and affective range: irritable Thought Process: illogical, preservative Thought Content: Paranoid, grandiosity, flight of ideas Speech: Normal rate, volume and rhythm Suicidal Ideation: No Homicidal Ideation: Intermittent Impulse Control: Impaired Insight and Judgment: Limited insight and judgment Memory: Normal Attention: Normal Orientation: Alert, oriented Assessment and Plan - Psychiatric problem (1) MDD (major depressive disorder) Current Visit: Yes Status: Acute (2) Alcohol abuse Current Visit: Yes Status: Acute Treatment Plan. Deparkote 1000QAM, 500 QHS, discontinued trazodone and also buspar. Patient admitted for inpatient psychiatric evaluation, medication adjustment and close monitoring The patient's behavior, mood, sleep and appetite will be closely monitored. Patient enrolled in individual and group therapeutic sessions and encouraged to attend. Patient provided with a safe and structured environment. Patient's physical health needs will be addressed by the Hospitalist. Hospitalist Consulted Labs including CBC, CMP, Lipid profile and Hemoglobin A1C levels ordered for baseline reference Social Assessment will be completed and the Body Builder will work with patient and family to ensure a suitable and safe disposition Medication adjustment will be made as clinically indicated Usual Wellness Zoroastrianism/Preservation: - Start Trazodone 50 mg po QHS - Start Melatonin 5 mg po QHS to promote circadian rhythm - Start [place]-3 for brain health, reduce impulsivity, and as adjunctive treatment for mood disorder, continue upon discharge given overall benefits. - Start B1 prophylaxis with 200 mg po for 5 days The patient agreed on the treatment plan, understood the risk, benefit, alternative treatment, potential consequence of no treatment, and gave informed consent. Initial Certification I certify that the inpatient psychiatric services are required for treatment that could reasonably be expected to improve the patient's condition for aggression and irritability Estimated days: 2 Post hospital care: primary care provider, psychiatric provider The case was staffed with Dr. Haley Legal Status: Voluntary Reaction to Hospitalization: Accepting Legal Status: Voluntary Patient Problems: Current Active Problems Assessment and Plan - Patient Problems (1) MDD (major depressive disorder) Current Visit: Yes Status: Acute (2) Alcohol abuse Current Visit: Yes Status: Acute Medications and Allergies Allergies Allergy/AdvReac Type Severity Reaction Status Date / Time No Known Allergies Allergy Verified 11/04/14 14:23 Home Medications Medication Instructions Recorded Confirmed Last Taken Type Ibuprofen [Motrin] 800 mg PO Q8HR PRN 07/20/20 07/22/20 Unknown History Quetiapine Fumarate [SEROquel] 400 mg PO QHS 07/20/20 07/22/20 Unknown History Budesonide/Formoterol Fumarate 1 puff INHALATION UNK 07/22/20 07/22/20 Unknown History [Symbicort 160-4.5 Mcg Inhaler] busPIRone [Buspar] 5 mg PO HS 07/22/20 07/22/20 Unknown History predniSONE [Deltasone] 20 mg PO UNK 07/22/20 07/22/20 Unknown History Active Meds: Active Medications Acetaminophen (Acetaminophen 325 Mg Tab) 650 mg PO Q12HR PRN PRN Reason: Pain, Mild (1-3) Last Admin: 07/25/20 21:33 Dose: 650 mg Documented by: Duloxetine HCl (Duloxetine 30 Mg Cap) 30 mg PO QDAY [facility] Last Admin: 07/25/20 10:12 Dose: Not Given Documented by: Ibuprofen (Ibuprofen 600 Mg Tab) 600 mg PO BID PRN PRN Reason: Pain , Severe (7-10) Quetiapine Fumarate (Quetiapine 200 Mg Tab) 400 mg PO QHS [facility] Last Admin: 07/25/20 21:26 Dose: 400 mg Documented by: Valproic Acid (Valproic Acid 250 Mg Cap) 1,000 mg PO QAM [facility] Last Admin: 07/25/20 10:09 Dose: Not Given Documented by: Valproic Acid (Valproic Acid 250 Mg Cap) 500 mg PO QHS [facility] Last Admin: 07/25/20 21:26 Dose: Not Given Documented by: Results - Results Labs/Vitals: Laboratory Last Values WBC 6.6 K/mm3 (4.5-11.0) 07/23/20 10:18 RBC 4.00 M/mm3 (3.65-5.03) 07/23/20 10:18 Hgb 11.6 gm/dl (10.1-14.3) 07/23/20 10:18 Hct 35.5 % (30.3-42.9) 07/23/20 10:18 MCV 89 fl (79-97) 07/23/20 10:18 MCH 29 pg (28-32) 07/23/20 10:18 MCHC 33 % (30-34) 07/23/20 10:18 RDW 15.2 % (13.2-15.2) 07/23/20 10:18 Plt Count 239 K/mm3 (140-440) 07/23/20 10:18 Lymph % (Auto) 33.1 % (13.4-35.0) 07/23/20 10:18 [place] % (Auto) 8.4 % (0.0-7.3) H 07/23/20 10:18 Eos % (Auto) 0.6 % (0.0-4.3) 07/23/20 10:18 Baso % (Auto) 0.5 % (0.0-1.8) 07/23/20 10:18 Lymph # (Auto) 2.2 K/mm3 (1.2-5.4) 07/23/20 10:18 [place] # (Auto) 0.6 K/mm3 (0.0-0.8) 07/23/20 10:18 Eos # (Auto) 0.0 K/mm3 (0.0-0.4) 07/23/20 10:18 Baso # (Auto) 0.0 K/mm3 (0.0-0.1) 07/23/20 10:18 Seg Neutrophils % 57.4 % (40.0-70.0) 07/23/20 10:18 Seg Neutrophils # 3.8 K/mm3 (1.8-7.7) 07/23/20 10:18 Sodium 138 mmol/L (137-145) 07/23/20 10:18 Potassium 4.6 mmol/L (3.6-5.0) 07/23/20 10:18 Chloride 100.8 mmol/L (98-107) 07/23/20 10:18 Carbon Dioxide 33 mmol/L (22-30) H D 07/23/20 10:18 Anion Gap 9 mmol/L 07/23/20 10:18 BUN 14 mg/dL (7-17) 07/23/20 10:18 Creatinine 0.8 mg/dL (0.6-1.2) 07/23/20 10:18 Estimated GFR > 60 ml/min 07/23/20 10:18 BUN/Creatinine Ratio 18 % 07/23/20 10:18 Glucose 85 mg/dL (65-100) 07/23/20 10:18 POC Glucose 86 mg/dL (70-105) 07/22/20 01:54 Hemoglobin A1c 5.3 % (4-6) 07/23/20 10:18 Calcium 9.6 mg/dL (8.4-10.2) 07/23/20 10:18 Total Bilirubin 0.30 mg/dL (0.1-1.2) 07/23/20 10:18 AST 12 units/L (5-40) 07/23/20 10:18 ALT 9 units/L (7-56) 07/23/20 10:18 Alkaline Phosphatase 56 units/L (35-129) 07/23/20 10:18 Total Protein 7.1 g/dL (6.3-8.2) 07/23/20 10:18 Albumin 3.9 g/dL (3.9-5) 07/23/20 10:18 Albumin/Globulin Ratio 1.2 % 07/23/20 10:18 Triglycerides 169 mg/dL (2-149) H 07/23/20 10:18 Cholesterol 208 mg/dL (50-199) H 07/23/20 10:18 LDL Cholesterol Direct 148 mg/dL (50-130) H 07/23/20 10:18 HDL Cholesterol 60 mg/dL (40-59) H 07/23/20 10:18 Cholesterol/HDL Ratio 3.46 % 07/23/20 10:18 Valproic Acid 45.6 ug/mL (50-100) L 07/24/20 19:54 Last Vital Signs Temp 98.9 F 07/25/20 08:38 Pulse 107 H 07/25/20 08:38 Resp 18 07/25/20 08:38 BP 122/71 07/25/20 08:38 Pulse Ox 97 07/25/20 08:38
[2020-07-26] MEDS: DULoxetine 30 MG CAP PO SCH (10:19)
[2020-07-26] MEDS: VALPROIC ACID 250 MG CAP PO SCH ×2 (10:19→22:19)
[2020-07-26] MEDS: ACETAMINOPHEN 325 MG TAB PO PRN ×2 (10:22→22:17)
[2020-07-26] MEDS: QUEtiapine 200 MG TAB PO SCH (22:16)
--- NOTE | 2020-07-27 07:39 | Progress Note ---
Subjective Date of service: 07/27/20 Principal diagnosis: (1) MDD (major depressive disorder) Subjective Comment: Psych Nurse:Pt remains resistive and non-compliant with tx regimens. Argumentative and very paranoid . Rested well and no acute distress observed overnight. Will continue to monitor. PSYCH HPI Patient continues to be uncooperative with the medical team, consistently argumentative and non compliant with medications. Patient continues to deny SI, informed patient there is no further indication for inpatient admission, she was admitted on voluntary status, she cant be forced to take her medications, she is her own guardian, and if she does not want to cooperate with care team and continues to argue and disrespect staff, for her safety and care team safety, I would recommend outpt follow up. Reason for continuing inpatient psychiatric hospitalization: Patient continues to be noncompliant with her medications and treatment regimen. She denies SI, and resolving HI, which was primary reason for admission, SW to involve police about HI towards family pior to discharge. Plan to discharge patient tomorrow. REVIEW OF SYSTEMS Constitutional: Negative for weight loss ENT: Negative for stridor Respiratory: Negative for cough or hemoptysis All other systems reviewed and are negative MENTAL STATUS EXAMINATION General Appearance and Behavior: Age appropriate, good hygiene, wearing appropriate clothes, good eye contact Cooperation: guarded, uncooperative Psychomotor Behavior: Psychomotor normal Mood: "im good" Affect and affective range: irritable Thought Process: illogical, preservative Thought Content: Paranoid, grandiosity, flight of ideas Speech: Normal rate, volume and rhythm Suicidal Ideation: No Homicidal Ideation: Intermittent Impulse Control: Impaired Insight and Judgment: Limited insight and judgment Memory: Normal Attention: Normal Orientation: Alert, oriented Assessment and Plan - Psychiatric problem (1) MDD (major depressive disorder) Current Visit: Yes Status: Acute (2) Alcohol abuse Current Visit: Yes Status: Acute (3) Non-compliance with treatment Current Visit: Yes Status: Acute (4) Non compliance w medication regimen Current Visit: Yes Status: Acute Treatment Plan. Patient to be discharged today as requested. Pt is non compliant with treatment Patient admitted for inpatient psychiatric evaluation, medication adjustment and close monitoring The patient's behavior, mood, sleep and appetite will be closely monitored. Patient enrolled in individual and group therapeutic sessions and encouraged to attend. Patient provided with a safe and structured environment. Patient's physical health needs will be addressed by the Hospitalist. Hospitalist Consulted Labs including CBC, CMP, Lipid profile and Hemoglobin A1C levels ordered for baseline reference Social Assessment will be completed and the Automotive Product Engineer will work with patient and family to ensure a suitable and safe disposition Medication adjustment will be made as clinically indicated Usual Wellness [facility]/Preservation: - Start Trazodone 50 mg po QHS - Start Melatonin 5 mg po QHS to promote circadian rhythm - Start [place]-3 for brain health, reduce impulsivity, and as adjunctive treatment for mood disorder, continue upon discharge given overall benefits. - Start B1 prophylaxis with 200 mg po for 5 days The patient agreed on the treatment plan, understood the risk, benefit, alternative treatment, potential consequence of no treatment, and gave informed consent. Initial Certification I certify that the inpatient psychiatric services are required for treatment that could reasonably be expected to improve the patient's condition for aggression and irritability Estimated days: 1 Post hospital care: primary care provider, psychiatric provider The case was staffed with Dr. Haley Legal Status: Voluntary Reaction to Hospitalization: Accepting Legal Status: Voluntary Patient Problems: Current Active Problems Assessment and Plan - Patient Problems (1) MDD (major depressive disorder) Current Visit: Yes Status: Acute (2) Alcohol abuse Current Visit: Yes Status: Acute (3) Non-compliance with treatment Current Visit: Yes Status: Acute (4) Non compliance w medication regimen Current Visit: Yes Status: Acute Medications and Allergies Allergies Allergy/AdvReac Type Severity Reaction Status Date / Time No Known Allergies Allergy Verified 11/04/14 14:23 Home Medications Medication Instructions Recorded Confirmed Last Taken Type Ibuprofen [Motrin] 800 mg PO Q8HR PRN 07/20/20 07/22/20 Unknown History Quetiapine Fumarate [SEROquel] 400 mg PO QHS 07/20/20 07/22/20 Unknown History Budesonide/Formoterol Fumarate 1 puff INHALATION UNK 07/22/20 07/22/20 Unknown History [Symbicort 160-4.5 Mcg Inhaler] busPIRone [Buspar] 5 mg PO HS 07/22/20 07/22/20 Unknown History predniSONE [Deltasone] 20 mg PO UNK 07/22/20 07/22/20 Unknown History Active Meds: Active Medications Acetaminophen (Acetaminophen 325 Mg Tab) 650 mg PO Q12HR PRN PRN Reason: Pain, Mild (1-3) Last Admin: 07/26/20 22:17 Dose: 325 mg Documented by: Duloxetine HCl (Duloxetine 30 Mg Cap) 30 mg PO QDAY [facility] Last Admin: 07/26/20 10:19 Dose: 30 mg Documented by: Ibuprofen (Ibuprofen 600 Mg Tab) 600 mg PO BID PRN PRN Reason: Pain , Severe (7-10) Quetiapine Fumarate (Quetiapine 200 Mg Tab) 400 mg PO QHS [facility] Last Admin: 07/26/20 22:16 Dose: 400 mg Documented by: Valproic Acid (Valproic Acid 250 Mg Cap) 1,000 mg PO QAM [facility] Last Admin: 07/26/20 10:19 Dose: 1,000 mg Documented by: Valproic Acid (Valproic Acid 250 Mg Cap) 500 mg PO QHS [facility] Last Admin: 07/26/20 22:19 Dose: Not Given Documented by: Results - Results Labs/Vitals: Laboratory Last Values WBC 6.6 K/mm3 (4.5-11.0) 07/23/20 10:18 RBC 4.00 M/mm3 (3.65-5.03) 07/23/20 10:18 Hgb 11.6 gm/dl (10.1-14.3) 07/23/20 10:18 Hct 35.5 % (30.3-42.9) 07/23/20 10:18 MCV 89 fl (79-97) 07/23/20 10:18 MCH 29 pg (28-32) 07/23/20 10:18 MCHC 33 % (30-34) 07/23/20 10:18 RDW 15.2 % (13.2-15.2) 07/23/20 10:18 Plt Count 239 K/mm3 (140-440) 07/23/20 10:18 Lymph % (Auto) 33.1 % (13.4-35.0) 07/23/20 10:18 [place] % (Auto) 8.4 % (0.0-7.3) H 07/23/20 10:18 Eos % (Auto) 0.6 % (0.0-4.3) 07/23/20 10:18 Baso % (Auto) 0.5 % (0.0-1.8) 07/23/20 10:18 Lymph # (Auto) 2.2 K/mm3 (1.2-5.4) 07/23/20 10:18 [place] # (Auto) 0.6 K/mm3 (0.0-0.8) 07/23/20 10:18 Eos # (Auto) 0.0 K/mm3 (0.0-0.4) 07/23/20 10:18 Baso # (Auto) 0.0 K/mm3 (0.0-0.1) 07/23/20 10:18 Seg Neutrophils % 57.4 % (40.0-70.0) 07/23/20 10:18 Seg Neutrophils # 3.8 K/mm3 (1.8-7.7) 07/23/20 10:18 Sodium 138 mmol/L (137-145) 07/23/20 10:18 Potassium 4.6 mmol/L (3.6-5.0) 07/23/20 10:18 Chloride 100.8 mmol/L (98-107) 07/23/20 10:18 Carbon Dioxide 33 mmol/L (22-30) H D 07/23/20 10:18 Anion Gap 9 mmol/L 07/23/20 10:18 BUN 14 mg/dL (7-17) 07/23/20 10:18 Creatinine 0.8 mg/dL (0.6-1.2) 07/23/20 10:18 Estimated GFR > 60 ml/min 07/23/20 10:18 BUN/Creatinine Ratio 18 % 07/23/20 10:18 Glucose 85 mg/dL (65-100) 07/23/20 10:18 POC Glucose 86 mg/dL (70-105) 07/22/20 01:54 Hemoglobin A1c 5.3 % (4-6) 07/23/20 10:18 Calcium 9.6 mg/dL (8.4-10.2) 07/23/20 10:18 Total Bilirubin 0.30 mg/dL (0.1-1.2) 07/23/20 10:18 AST 12 units/L (5-40) 07/23/20 10:18 ALT 9 units/L (7-56) 07/23/20 10:18 Alkaline Phosphatase 56 units/L (35-129) 07/23/20 10:18 Total Protein 7.1 g/dL (6.3-8.2) 07/23/20 10:18 Albumin 3.9 g/dL (3.9-5) 07/23/20 10:18 Albumin/Globulin Ratio 1.2 % 07/23/20 10:18 Triglycerides 169 mg/dL (2-149) H 07/23/20 10:18 Cholesterol 208 mg/dL (50-199) H 07/23/20 10:18 LDL Cholesterol Direct 148 mg/dL (50-130) H 07/23/20 10:18 HDL Cholesterol 60 mg/dL (40-59) H 07/23/20 10:18 Cholesterol/HDL Ratio 3.46 % 07/23/20 10:18 Valproic Acid 45.6 ug/mL (50-100) L 07/24/20 19:54 Last Vital Signs Temp 98.7 F 07/26/20 19:27 Pulse 89 07/26/20 19:27 Resp 16 07/26/20 19:27 BP 107/67 07/26/20 19:27 Pulse Ox 99 07/26/20 19:27
--- NOTE | 2020-07-27 08:17 | Discharge Summary ---
Providers - Providers Date of Admission: 07/22/20 00:29 Date of discharge: 07/27/20 Attending physician: COCO RAYO MD 07/21/20 23:52 Consult to Physician [CONS] Routine Comment: Consulting Provider: GENESIS HOLLIS Physician Instructions: Reason For Exam: H&P for new admission Primary care physician: PETROLEUM TRANSPORT DRIVER Hospitalization Reason for admission: Danger to self and danger to others Condition: Good Hospital course: The patient was provided inpatient psychiatric treatment with safe and supportive environment, group/individual therapy, psychiatric medication, medication adjustment, adverse effect monitor, medical evaluation, medical treatment, social service assessment, social support meeting, placement assessment and psycho-education. The patient symptoms of SI, HI resolved but patient continues to be irritable, argumentative and non compliant with treatment and medication regimen as documented by this provider and all patients nurse encounters. At the time of discharge, the patient had no suicidal ideas, no homicidal ideas. The patient agreed and acknowledges potential consequence of no treatment, and gave informed consent. Disposition: DC-01 TO HOME OR SELFCARE Allergies/Adverse Reactions: Allergies No Known Allergies Allergy (Verified 11/04/14 14:23) Vital Signs: Last Vital Signs Temp 98.7 F 07/26/20 19:27 Pulse 89 07/26/20 19:27 Resp 16 07/26/20 19:27 BP 107/67 07/26/20 19:27 Pulse Ox 99 07/26/20 19:27 Last Lab: Laboratory Last Values WBC 6.6 K/mm3 (4.5-11.0) 07/23/20 10:18 RBC 4.00 M/mm3 (3.65-5.03) 07/23/20 10:18 Hgb 11.6 gm/dl (10.1-14.3) 07/23/20 10:18 Hct 35.5 % (30.3-42.9) 07/23/20 10:18 MCV 89 fl (79-97) 07/23/20 10:18 MCH 29 pg (28-32) 07/23/20 10:18 MCHC 33 % (30-34) 07/23/20 10:18 RDW 15.2 % (13.2-15.2) 07/23/20 10:18 Plt Count 239 K/mm3 (140-440) 07/23/20 10:18 Lymph % (Auto) 33.1 % (13.4-35.0) 07/23/20 10:18 [place] % (Auto) 8.4 % (0.0-7.3) H 07/23/20 10:18 Eos % (Auto) 0.6 % (0.0-4.3) 07/23/20 10:18 Baso % (Auto) 0.5 % (0.0-1.8) 07/23/20 10:18 Lymph # (Auto) 2.2 K/mm3 (1.2-5.4) 07/23/20 10:18 [place] # (Auto) 0.6 K/mm3 (0.0-0.8) 07/23/20 10:18 Eos # (Auto) 0.0 K/mm3 (0.0-0.4) 07/23/20 10:18 Baso # (Auto) 0.0 K/mm3 (0.0-0.1) 07/23/20 10:18 Seg Neutrophils % 57.4 % (40.0-70.0) 07/23/20 10:18 Seg Neutrophils # 3.8 K/mm3 (1.8-7.7) 07/23/20 10:18 Sodium 138 mmol/L (137-145) 07/23/20 10:18 Potassium 4.6 mmol/L (3.6-5.0) 07/23/20 10:18 Chloride 100.8 mmol/L (98-107) 07/23/20 10:18 Carbon Dioxide 33 mmol/L (22-30) H D 07/23/20 10:18 Anion Gap 9 mmol/L 07/23/20 10:18 BUN 14 mg/dL (7-17) 07/23/20 10:18 Creatinine 0.8 mg/dL (0.6-1.2) 07/23/20 10:18 Estimated GFR > 60 ml/min 07/23/20 10:18 BUN/Creatinine Ratio 18 % 07/23/20 10:18 Glucose 85 mg/dL (65-100) 07/23/20 10:18 POC Glucose 86 mg/dL (70-105) 07/22/20 01:54 Hemoglobin A1c 5.3 % (4-6) 07/23/20 10:18 Calcium 9.6 mg/dL (8.4-10.2) 07/23/20 10:18 Total Bilirubin 0.30 mg/dL (0.1-1.2) 07/23/20 10:18 AST 12 units/L (5-40) 07/23/20 10:18 ALT 9 units/L (7-56) 07/23/20 10:18 Alkaline Phosphatase 56 units/L (35-129) 07/23/20 10:18 Total Protein 7.1 g/dL (6.3-8.2) 07/23/20 10:18 Albumin 3.9 g/dL (3.9-5) 07/23/20 10:18 Albumin/Globulin Ratio 1.2 % 07/23/20 10:18 Triglycerides 169 mg/dL (2-149) H 07/23/20 10:18 Cholesterol 208 mg/dL (50-199) H 07/23/20 10:18 LDL Cholesterol Direct 148 mg/dL (50-130) H 07/23/20 10:18 HDL Cholesterol 60 mg/dL (40-59) H 07/23/20 10:18 Cholesterol/HDL Ratio 3.46 % 07/23/20 10:18 Valproic Acid 45.6 ug/mL (50-100) L 07/24/20 19:54 - Discharge Diagnoses (1) MDD (major depressive disorder) Status: Acute (2) Alcohol abuse Status: Acute (3) Non-compliance with treatment Status: Acute (4) Non compliance w medication regimen Status: Acute Core Measure Documentation - Palliative Care Palliative Care/ Comfort Measures: Not Applicable - Core Measures Any of the following diagnoses?: none Exam - Constitutional Vitals: Temp Pulse Resp BP Pulse Ox 98.7 F 89 16 107/67 99 07/26/20 19:27 07/26/20 19:27 07/26/20 19:27 07/26/20 19:27 07/26/20 19:27 General appearance: Present: no acute distress - EENT Eyes: Present: PERRL, EOM intact ENT: hearing intact, clear oral mucosa - Neck Neck: Present: supple, normal ROM - Respiratory Respiratory effort: normal - Abdominal Female genitourinary: Present: deferred - Integumentary Integumentary: Present: clear, warm Plan Care Plan Goals: Maintain good and stable mental health. Plan of Treatment: The patient should be compliant with medications, not to use drugs and not to drink alcohol. The patient understands that if suicidal ideas, homicidal ideas, or any endangering thoughts arise, the patient should immediately seek for emergent assistance including but not limited to crisis hot line and emergency room. Follow up with outpatient Psychiatrist and PCP within 7 - 14 days of discharge. Follow up with: PRIMARY CARE, [Primary Care Provider] - 7 Days
[2020-07-27] MEDS: VALPROIC ACID 250 MG CAP PO SCH ×2 (09:44→21:44)
[2020-07-27] MEDS: DULoxetine 30 MG CAP PO SCH ×2 (09:46→10:02)
[2020-07-27] MEDS: ACETAMINOPHEN 325 MG TAB PO PRN ×2 (09:58→20:17)
[2020-07-27] MEDS: QUEtiapine 200 MG TAB PO SCH (21:44)
--- NOTE | 2020-07-28 07:40 | Progress Note ---
Subjective Date of service: 07/28/20 Principal diagnosis: (1) MDD (major depressive disorder) Subjective Comment: Psych Nurse:Patient spent the day pushing limits with staff. She has been demanding with a attitude of entitlement. She refused cymbalta this morning during morning medications. She continues to be paranoid and asks to see the packages the medications come in. She interacts more appropriately with her peers than with staff. She presents as enjoying assisting them when needed. She denies si/hi/ah/vh. Will continue to monitor patient for safety. pt spent the evening in activity room reading the bible, pt is alert and oriented x4, calm and cooperative, able to make needs known, paranoid requested to read medication package before having the video game script writer opened them. c/o of back pain 05/21 pain , tylenol 650 mg po offered, pt refused depakote, pt states," I had 1000mg mg depakote in the morning, I think that is enough". Consumed 100% of snack, no distress noted, will continue to monitor for safety. PSYCH HPI Patient seen this AM, making unreasonable demands with the Nurse Tech, stating she does not like the nurse and myself and does not want to talk to us because she is too blessed to be stressed by anybody. Reason for continuing inpatient psychiatric hospitalization: Again all nursing notes and encounters continue to show patients demanding/dependant attitude and non compliance to medication regimen. Patient was discharged from facility but she appealed her discharge stating insurance must provide housing for her, and we pending to hear back from medicare regarding her discharge. REVIEW OF SYSTEMS Constitutional: Negative for weight loss ENT: Negative for stridor Respiratory: Negative for cough or hemoptysis All other systems reviewed and are negative MENTAL STATUS EXAMINATION General Appearance and Behavior: Age appropriate, good hygiene, wearing appropriate clothes, good eye contact Cooperation: guarded, uncooperative Psychomotor Behavior: Psychomotor normal Mood: "im good" Affect and affective range: irritable Thought Process: illogical, preservative Thought Content: Paranoid, grandiosity, flight of ideas Speech: Normal rate, volume and rhythm Suicidal Ideation: No Homicidal Ideation: Intermittent Impulse Control: Impaired Insight and Judgment: Limited insight and judgment Memory: Normal Attention: Normal Orientation: Alert, oriented Assessment and Plan - Psychiatric problem (1) MDD (major depressive disorder) Current Visit: Yes Status: Acute (2) Alcohol abuse Current Visit: Yes Status: Acute (3) Non-compliance with treatment Current Visit: Yes Status: Acute (4) Non compliance w medication regimen Current Visit: Yes Status: Acute Treatment Plan. Patient to be discharged per appeal status. Pt is non compliant with treatment Patient admitted for inpatient psychiatric evaluation, medication adjustment and close monitoring The patient's behavior, mood, sleep and appetite will be closely monitored. Patient enrolled in individual and group therapeutic sessions and encouraged to attend. Patient provided with a safe and structured environment. Patient's physical health needs will be addressed by the Hospitalist. Hospitalist Consulted Labs including CBC, CMP, Lipid profile and Hemoglobin A1C levels ordered for baseline reference Social Assessment will be completed and the Bindery Worker will work with patient and family to ensure a suitable and safe disposition Medication adjustment will be made as clinically indicated Usual Wellness Confucianism/Preservation: - Start Trazodone 50 mg po QHS - Start Melatonin 5 mg po QHS to promote circadian rhythm - Start [place]-3 for brain health, reduce impulsivity, and as adjunctive treatment for mood disorder, continue upon discharge given overall benefits. - Start B1 prophylaxis with 200 mg po for 5 days The patient agreed on the treatment plan, understood the risk, benefit, alternative treatment, potential consequence of no treatment, and gave informed consent. Initial Certification I certify that the inpatient psychiatric services are required for treatment that could reasonably be expected to improve the patient's condition for aggression and irritability Estimated days: 1 Post hospital care: primary care provider, psychiatric provider The case was staffed with Dr. Haley Legal Status: Voluntary Reaction to Hospitalization: Accepting Legal Status: Voluntary Patient Problems: Current Active Problems Assessment and Plan - Patient Problems (1) MDD (major depressive disorder) Current Visit: Yes Status: Acute (2) Alcohol abuse Current Visit: Yes Status: Acute (3) Non-compliance with treatment Current Visit: Yes Status: Acute (4) Non compliance w medication regimen Current Visit: Yes Status: Acute Medications and Allergies Allergies Allergy/AdvReac Type Severity Reaction Status Date / Time No Known Allergies Allergy Verified 11/04/14 14:23 Home Medications Medication Instructions Recorded Confirmed Last Taken Type Ibuprofen [Motrin] 800 mg PO Q8HR PRN 07/20/20 07/22/20 Unknown History Quetiapine Fumarate [SEROquel] 400 mg PO QHS 07/20/20 07/22/20 Unknown History Budesonide/Formoterol Fumarate 1 puff INHALATION K 07/22/20 07/22/20 Unknown History [Symbicort 160-4.5 Mcg Inhaler] busPIRone [Buspar] 5 mg PO HS 07/22/20 07/22/20 Unknown History predniSONE [Deltasone] 20 mg PO UNK 07/22/20 07/22/20 Unknown History Active Meds: Active Medications Acetaminophen (Acetaminophen 325 Mg Tab) 650 mg PO Q12HR PRN PRN Reason: Pain, Mild (1-3) Last Admin: 07/27/20 20:17 Dose: 650 mg Documented by: Duloxetine HCl (Duloxetine 30 Mg Cap) 30 mg PO QDAY [facility] Last Admin: 07/27/20 10:02 Dose: Not Given Documented by: Ibuprofen (Ibuprofen 600 Mg Tab) 600 mg PO BID PRN PRN Reason: Pain , Severe (7-10) Quetiapine Fumarate (Quetiapine 200 Mg Tab) 400 mg PO QHS [facility] Last Admin: 07/27/20 21:44 Dose: 400 mg Documented by: Valproic Acid (Valproic Acid 250 Mg Cap) [facility] [place] Admin: 07/27/20 09:44 Dose: 1,000 mg Documented by: Valproic Acid (Valproic Acid 250 Mg Cap) 500 mg PO QHS [facility] Last Admin: 07/27/20 21:44 Dose: Not Given Documented by: Results - Results Labs/Vitals: Laboratory Last Values WBC 6.6 K/mm3 (4.5-11.0) 07/23/20 10:18 RBC 4.00 M/mm3 (3.65-5.03) 07/23/20 10:18 Hgb 11.6 gm/dl (10.1-14.3) 07/23/20 10:18 Hct 35.5 % (30.3-42.9) 07/23/20 10:18 MCV 89 fl (79-97) 07/23/20 10:18 MCH 29 pg (28-32) 07/23/20 10:18 MCHC 33 % (30-34) 07/23/20 10:18 RDW 15.2 % (13.2-15.2) 07/23/20 10:18 Plt Count 239 K/mm3 (140-440) 07/23/20 10:18 Lymph % (Auto) 33.1 % (13.4-35.0) 07/23/20 10:18 [place] % (Auto) 8.4 % (0.0-7.3) H 07/23/20 10:18 Eos % (Auto) 0.6 % (0.0-4.3) 07/23/20 10:18 Baso % (Auto) 0.5 % (0.0-1.8) 07/23/20 10:18 Lymph # (Auto) 2.2 K/mm3 (1.2-5.4) 07/23/20 10:18 [place] # (Auto) 0.6 K/mm3 (0.0-0.8) 07/23/20 10:18 Eos # (Auto) 0.0 K/mm3 (0.0-0.4) 07/23/20 10:18 Baso # (Auto) 0.0 K/mm3 (0.0-0.1) 07/23/20 10:18 Seg Neutrophils % 57.4 % (40.0-70.0) 07/23/20 10:18 Seg Neutrophils # 3.8 K/mm3 (1.8-7.7) 07/23/20 10:18 Sodium 138 mmol/L (137-145) 07/23/20 10:18 Potassium 4.6 mmol/L (3.6-5.0) 07/23/20 10:18 Chloride 100.8 mmol/L (98-107) 07/23/20 10:18 Carbon Dioxide 33 mmol/L (22-30) H D 07/23/20 10:18 Anion Gap 9 mmol/L 07/23/20 10:18 BUN 14 mg/dL (7-17) 07/23/20 10:18 Creatinine 0.8 mg/dL (0.6-1.2) 07/23/20 10:18 Estimated GFR > 60 ml/min 07/23/20 10:18 BUN/Creatinine Ratio 18 % 07/23/20 10:18 Glucose 85 mg/dL (65-100) 07/23/20 10:18 POC Glucose 86 mg/dL (70-105) 07/22/20 01:54 Hemoglobin A1c 5.3 % (4-6) 07/23/20 10:18 Calcium 9.6 mg/dL (8.4-10.2) 07/23/20 10:18 Total Bilirubin 0.30 mg/dL (0.1-1.2) 07/23/20 10:18 AST 12 units/L (5-40) 07/23/20 10:18 ALT 9 units/L (7-56) 07/23/20 10:18 Alkaline Phosphatase 56 units/L (35-129) 07/23/20 10:18 Total Protein 7.1 g/dL (6.3-8.2) 07/23/20 10:18 Albumin 3.9 g/dL (3.9-5) 07/23/20 10:18 Albumin/Globulin Ratio 1.2 % 07/23/20 10:18 Triglycerides 169 mg/dL (2-149) H 07/23/20 10:18 Cholesterol 208 mg/dL (50-199) H 07/23/20 10:18 LDL Cholesterol Direct 148 mg/dL (50-130) H 07/23/20 10:18 HDL Cholesterol 60 mg/dL (40-59) H 07/23/20 10:18 Cholesterol/HDL Ratio 3.46 % 07/23/20 10:18 Valproic Acid 45.6 ug/mL (50-100) L 07/24/20 19:54 Last Vital Signs Temp 98.7 F 07/27/20 22:00 Pulse 94 H 07/27/20 22:00 Resp 16 07/27/20 22:00 BP 112/80 07/27/20 22:00 Pulse Ox 94 07/27/20 22:00
[2020-07-28] MEDS: VALPROIC ACID 250 MG CAP PO SCH ×3 (09:07→22:38)
[2020-07-28] MEDS: DULoxetine 30 MG CAP PO SCH (09:09)
[2020-07-28] MEDS: ACETAMINOPHEN 325 MG TAB PO PRN ×2 (09:30→21:19)
[2020-07-28] MEDS: QUEtiapine 200 MG TAB PO SCH (21:16)
--- NOTE | 2020-07-29 08:05 | Progress Note ---
Subjective Date of service: 07/29/20 Principal diagnosis: (1) MDD (major depressive disorder) Subjective Comment: During my interview with the patient she is lying in bed. She is calm, cooperative and pleasant. The patient is a/o x 3. She remembers me from rounding on her in the ER. The patient is telling me about the situation with her family again, and how they messed up her housing. She says "that makes her feel homicidal against them." When asking the patient why she hasn't been complying with her medical regimen, she replies "he's been trying to over medicate me." The patient says "I don't take depakote during the day. I take 1000mg at night." She becomes irritable, and states, "I initially didn't want to come to this floor because something always happens when I come here." The patient says "please, I need long-term placement." REVIEW OF SYSTEMS Constitutional: Negative for weight loss ENT: Negative for stridor Respiratory: Negative for cough or hemoptysis All other systems reviewed and are negative MENTAL STATUS EXAMINATION General Appearance and Behavior: Age appropriate, good hygiene, wearing appropriate clothes, good eye contact Cooperation: Participating/engaged Psychomotor Behavior: Psychomotor normal Mood: "okay" Affect and affective range: Congruent with mood Thought Process: logical Thought Content: homicidal thoughts Speech: Normal rate, volume and rhythm Suicidal Ideation: Denies Homicidal Ideation: Yes Impulse Control: Impaired Insight and Judgment: Limited insight and judgment Memory: Normal Attention: Normal Orientation: Alert, oriented Assessment and Plan (1) Major depressive disorder) (2) Alcohol Use Disorder (3) Non compliance with other medical treatments and regimen Current Visit: Yes Status: Acute Treatment Plan. Patient admitted for inpatient psychiatric evaluation, medication adjustment and close monitoring The patient's behavior, mood, sleep and appetite will be closely monitored. Patient enrolled in individual and group therapeutic sessions and encouraged to attend. Patient provided with a safe and structured environment. Patient's physical health needs will be addressed by the Hospitalist. Hospitalist Consulted Labs including CBC, CMP, Lipid profile and Hemoglobin A1C levels ordered for baseline reference Social Assessment will be completed and the Machine Finisher will work with patient and family to ensure a suitable and safe disposition Medication adjustment will be made as clinically indicated Adjusted Depakote to fit the patient's stated home regimen: Depakote DR 1000mg po qhs Adjusted Tylenol Dose Usual Wellness Episcopal/Preservation: - Start Trazodone 50 mg po QHS - Start Melatonin 5 mg po QHS to promote circadian rhythm - Start [place]-3 for brain health, reduce impulsivity, and as adjunctive treatment for mood disorder, continue upon discharge given overall benefits. - Start B1 prophylaxis with 200 mg po for 5 days The patient agreed on the treatment plan, understood the risk, benefit, alternative treatment, potential consequence of no treatment, and gave informed consent. Estimated days: 2 Post hospital care: primary care provider, psychiatric provider The case was staffed with Dr. Haley Medications and Allergies Allergies Allergy/AdvReac Type Severity Reaction Status Date / Time No Known Allergies Allergy Verified 11/04/14 14:23 Home Medications Medication Instructions Recorded Confirmed Last Taken Type Ibuprofen [Motrin] 800 mg PO Q8HR PRN 07/20/20 07/22/20 Unknown History Quetiapine Fumarate [SEROquel] 400 mg PO QHS 07/20/20 07/22/20 Unknown History Budesonide/Formoterol Fumarate 1 puff INHALATION UNK 07/22/20 07/22/20 Unknown History [Symbicort 160-4.5 Mcg Inhaler] busPIRone [Buspar] 5 mg PO HS 07/22/20 07/22/20 Unknown History predniSONE [Deltasone] 20 mg PO UNK 07/22/20 07/22/20 Unknown History Active Meds: Active Medications Duloxetine HCl (Duloxetine 30 Mg Cap) 30 mg PO QDAY [facility] Last Admin: 07/28/20 09:09 Dose: Not Given Documented by: Ibuprofen (Ibuprofen 600 Mg Tab) 600 mg PO BID PRN PRN Reason: Pain , Severe (7-10) Quetiapine Fumarate (Quetiapine 200 Mg Tab) 400 mg PO QHS [facility] Last Admin: 07/28/20 21:16 Dose: 400 mg Documented by: Valproic Acid (Valproic Acid 250 Mg Cap) 500 mg PO QHS [facility] Last Admin: 07/28/20 22:38 Dose: Not Given Documented by: Results - Results Labs/Vitals: Laboratory Last Values WBC 6.6 K/mm3 (4.5-11.0) 07/23/20 10:18 RBC 4.00 M/mm3 (3.65-5.03) 07/23/20 10:18 Hgb 11.6 gm/dl (10.1-14.3) 07/23/20 10:18 Hct 35.5 % (30.3-42.9) 07/23/20 10:18 MCV 89 fl (79-97) 07/23/20 10:18 MCH 29 pg (28-32) 07/23/20 10:18 MCHC 33 % (30-34) 07/23/20 10:18 RDW 15.2 % (13.2-15.2) 07/23/20 10:18 Plt Count 239 K/mm3 (140-440) 07/23/20 10:18 Lymph % (Auto) 33.1 % (13.4-35.0) 07/23/20 10:18 [place] % (Auto) 8.4 % (0.0-7.3) H 07/23/20 10:18 Eos % (Auto) 0.6 % (0.0-4.3) 07/23/20 10:18 Baso % (Auto) 0.5 % (0.0-1.8) 07/23/20 10:18 Lymph # (Auto) 2.2 K/mm3 (1.2-5.4) 07/23/20 10:18 [place] # (Auto) 0.6 K/mm3 (0.0-0.8) 07/23/20 10:18 Eos # (Auto) 0.0 K/mm3 (0.0-0.4) 07/23/20 10:18 Baso # (Auto) 0.0 K/mm3 (0.0-0.1) 07/23/20 10:18 Seg Neutrophils % 57.4 % (40.0-70.0) 07/23/20 10:18 Seg Neutrophils # 3.8 K/mm3 (1.8-7.7) 07/23/20 10:18 Sodium 138 mmol/L (137-145) 07/23/20 10:18 Potassium 4.6 mmol/L (3.6-5.0) 07/23/20 10:18 Chloride 100.8 mmol/L (98-107) 07/23/20 10:18 Carbon Dioxide 33 mmol/L (22-30) H D 07/23/20 10:18 Anion Gap 9 mmol/L 07/23/20 10:18 BUN 14 mg/dL (7-17) 07/23/20 10:18 Creatinine 0.8 mg/dL (0.6-1.2) 07/23/20 10:18 Estimated GFR > 60 ml/min 07/23/20 10:18 BUN/Creatinine Ratio 18 % 07/23/20 10:18 Glucose 85 mg/dL (65-100) 07/23/20 10:18 POC Glucose 86 mg/dL (70-105) 07/22/20 01:54 Hemoglobin A1c 5.3 % (4-6) 07/23/20 10:18 Calcium 9.6 mg/dL (8.4-10.2) 07/23/20 10:18 Total Bilirubin 0.30 mg/dL (0.1-1.2) 07/23/20 10:18 AST 12 units/L (5-40) 07/23/20 10:18 ALT 9 units/L (7-56) 07/23/20 10:18 Alkaline Phosphatase 56 units/L (35-129) 07/23/20 10:18 Total Protein 7.1 g/dL (6.3-8.2) 07/23/20 10:18 Albumin 3.9 g/dL (3.9-5) 07/23/20 10:18 Albumin/Globulin Ratio 1.2 % 07/23/20 10:18 Triglycerides 169 mg/dL (2-149) H 07/23/20 10:18 Cholesterol 208 mg/dL (50-199) H 07/23/20 10:18 LDL Cholesterol Direct 148 mg/dL (50-130) H 07/23/20 10:18 HDL Cholesterol 60 mg/dL (40-59) H 07/23/20 10:18 Cholesterol/HDL Ratio 3.46 % 07/23/20 10:18 Valproic Acid 45.6 ug/mL (50-100) L 07/24/20 19:54 Last Vital Signs Temp 98.2 F 07/28/20 19:36 Pulse 84 07/28/20 19:36 Resp 17 07/28/20 19:36 BP 114/72 07/28/20 19:36 Pulse Ox 100 07/28/20 19:36
[2020-07-29] MEDS ORDERED: ACETAMINOPHEN 325 MG TAB PO PRN (08:30)
[2020-07-29] MEDS: DULoxetine 30 MG CAP PO SCH (09:29)
[2020-07-29 09:45] VITALS: BP 107/75
[2020-07-29] MEDS ORDERED: VALPROIC ACID 250 MG CAP PO SCH ×2 (14:00→22:00)
--- NOTE | 2020-07-29 14:13 | Discharge Summary ---
Providers - Providers Date of Admission: 07/22/20 00:29 Date of discharge: 07/29/20 Attending physician: COCO RAYO MD 07/21/20 23:52 Consult to Physician [CONS] Routine Comment: Consulting Provider: GENESIS HOLLIS Physician Instructions: Reason For Exam: H&P for new admission Primary care physician: H[employer]IC[employer]GEANT Hospitalization Reason for admission: SI/HI Admitting Diagnosis: F33.1 - MAJOR DEPRESSIVE DISORDER, RECURRENT, MODERATE Condition: Good Hospital course: The patient was provided inpatient psychiatric treatment with safe and supportive environment, group/individual therapy, psychiatric medication, medication adjustment, adverse effect monitor, medical evaluation, medical treatment, social service assessment, social support meeting, placement assessment and psycho-education. The patients mood, cognition, behavior are improved and stabilized but still is selective and non compliant with mediations.. At the time of discharge, the patient had no suicidal ideas, no homicidal ideas, no aggressive thoughts, no endangering behavior and no debilitating adverse effects. The patient agareed on the treatment plan, understood the risk, benefit, alternative treatment, potential consequence of no treatment, and gave informed consent. Disposition: DC-01 TO HOME OR SELFCARE Time spent for discharge: 38 Allergies/Adverse Reactions: Allergies No Known Allergies Allergy (Verified 11/04/14 14:23) Vital Signs: Last Vital Signs Temp 97.8 F 07/29/20 09:41 Pulse 106 H 07/29/20 09:41 Resp 22 07/29/20 09:41 BP 107/75 07/29/20 09:41 Pulse Ox 99 07/29/20 09:41 Last Lab: Laboratory Last Values WBC 6.6 K/mm3 (4.5-11.0) 07/23/20 10:18 RBC 4.00 M/mm3 (3.65-5.03) 07/23/20 10:18 Hgb 11.6 gm/dl (10.1-14.3) 07/23/20 10:18 Hct 35.5 % (30.3-42.9) 07/23/20 10:18 MCV 89 fl (79-97) 07/23/20 10:18 MCH 29 pg (28-32) 07/23/20 10:18 MCHC 33 % (30-34) 07/23/20 10:18 RDW 15.2 % (13.2-15.2) 07/23/20 10:18 Plt Count 239 K/mm3 (140-440) 07/23/20 10:18 Lymph % (Auto) 33.1 % (13.4-35.0) 07/23/20 10:18 [place] % (Auto) 8.4 % (0.0-7.3) H 07/23/20 10:18 Eos % (Auto) 0.6 % (0.0-4.3) 07/23/20 10:18 Baso % (Auto) 0.5 % (0.0-1.8) 07/23/20 10:18 Lymph # (Auto) 2.2 K/mm3 (1.2-5.4) 07/23/20 10:18 [place] # (Auto) 0.6 K/mm3 (0.0-0.8) 07/23/20 10:18 Eos # (Auto) 0.0 K/mm3 (0.0-0.4) 07/23/20 10:18 Baso # (Auto) 0.0 K/mm3 (0.0-0.1) 07/23/20 10:18 Seg Neutrophils % 57.4 % (40.0-70.0) 07/23/20 10:18 Seg Neutrophils # 3.8 K/mm3 (1.8-7.7) 07/23/20 10:18 Sodium 138 mmol/L (137-145) 07/23/20 10:18 Potassium 4.6 mmol/L (3.6-5.0) 07/23/20 10:18 Chloride 100.8 mmol/L (98-107) 07/23/20 10:18 Carbon Dioxide 33 mmol/L (22-30) H D 07/23/20 10:18 Anion Gap 9 mmol/L 07/23/20 10:18 BUN 14 mg/dL (7-17) 07/23/20 10:18 Creatinine 0.8 mg/dL (0.6-1.2) 07/23/20 10:18 Estimated GFR > 60 ml/min 07/23/20 10:18 BUN/Creatinine Ratio 18 % 07/23/20 10:18 Glucose 85 mg/dL (65-100) 07/23/20 10:18 POC Glucose 86 mg/dL (70-105) 07/22/20 01:54 Hemoglobin A1c 5.3 % (4-6) 07/23/20 10:18 Calcium 9.6 mg/dL (8.4-10.2) 07/23/20 10:18 Total Bilirubin 0.30 mg/dL (0.1-1.2) 07/23/20 10:18 AST 12 units/L (5-40) 07/23/20 10:18 ALT 9 units/L (7-56) 07/23/20 10:18 Alkaline Phosphatase 56 units/L (35-129) 07/23/20 10:18 Total Protein 7.1 g/dL (6.3-8.2) 07/23/20 10:18 Albumin 3.9 g/dL (3.9-5) 07/23/20 10:18 Albumin/Globulin Ratio 1.2 % 07/23/20 10:18 Triglycerides 169 mg/dL (2-149) H 07/23/20 10:18 Cholesterol 208 mg/dL (50-199) H 07/23/20 10:18 LDL Cholesterol Direct 148 mg/dL (50-130) H 07/23/20 10:18 HDL Cholesterol 60 mg/dL (40-59) H 07/23/20 10:18 Cholesterol/HDL Ratio 3.46 % 07/23/20 10:18 Valproic Acid 45.6 ug/mL (50-100) L 07/24/20 19:54 Core Measure Documentation - Palliative Care Palliative Care/ Comfort Measures: Not Applicable - Core Measures Any of the following diagnoses?: none Exam - Constitutional Vitals: Temp Pulse Resp BP Pulse Ox 97.8 F 106 H 22 107/75 99 07/29/20 09:41 07/29/20 09:41 07/29/20 09:41 07/29/20 09:41 07/29/20 09:41 General appearance: Present: no acute distress - EENT Eyes: Present: PERRL, EOM intact ENT: hearing intact, clear oral mucosa - Neck Neck: Present: supple, normal ROM - Respiratory Respiratory effort: normal Plan Activity: advance as tolerated Weight Bearing Status: Weight Bear as Tolerated Care Plan Goals: Maintain good and stable mental health. Plan of Treatment: The patient should be compliant with medications, not to use drugs and not to drink alcohol. The patient understands that if suicidal ideas, homicidal ideas, or any endangering thoughts arise, the patient should immediately seek for emergent assistance including but not limited to crisis hot line and emergency room. Follow up with outpatient Psychiatrist and PCP within 7 - 14 days of discharge. Plan of Treatment: The patient understands that if suicidal ideas, homicidal ideas, or any endangering thoughts arise, the patient should immediately seek for emergent assistance including but not limited to crisis hot line and emergency room. Health Concerns: Alcohol Use Assessment: MDD Follow up with: PRIMARY CARE, [Primary Care Provider] - 7 Days
[2020-07-30] MEDS ORDERED: VALPROIC ACID 250 MG CAP PO SCH (10:00)
== END 2020-07-29 17:02 | disposition home or self-care (01) | DRG 885 ==
LOC: 3A 22:15 → UNDOADMIN 22:15 → 5A 07-22 00:29
PROVIDERS: ADMIT Psychiatry & Neurology Psychiatry; ATTEND Psychiatry & Neurology Psychiatry
DX: F33.1 Major depressive disorder, recurrent, moderate (principal); F10.10 Alcohol abuse, uncomplicated; E66.9 Obesity, unspecified; Z79.899 Other long term (current) drug therapy; Z82.49 Family history of ischemic heart disease and other diseases of the circulatory system; Z68.34 Body mass index [BMI] 34.0-34.9, adult; Z91.14 Patient's other noncompliance with medication regimen
CPT/HCPCS: 36415; 80053; 80061; 80164; 80307; 80320; 81001; 82962; 83036; 85025; G0378; G0480; U0003

== ENCOUNTER 2020-11-04 22:33 | Emergency (ER) | payer MEDICARE ==
[2020-11-04 23:26] VITALS: BP 124/77
[2020-11-05] MEDS ORDERED: ONDANSETRON 4 MG ODT TAB PO ONE (01:33)
[2020-11-05] MEDS ORDERED: AMOXICILLIN/K CLAV 875/125MG TAB PO ONE (01:33)
[2020-11-05] MEDS ORDERED: predniSONE 20 MG TAB PO ONE (01:33)
[2020-11-05] MEDS ORDERED: ACETAMINOPHEN 500 MG TAB PO ONE (01:34)
--- NOTE | 2020-11-05 01:53 | Emergency Department Report ---
ED General Adult HPI - General Chief complaint: Headache Stated complaint: HEADACHE Source: patient Mode of arrival: Ambulatory Limitations: No Limitations - History of Present Illness Initial comments: Patient is a 50-year-old -Lao female with a history of chronic osteoarthritis, anxiety and depression who presents to the ED with complaint of acute exacerbation of her chronic dental pain characterized by swollen gums and multiple dental caries for the last 4 months intermittently, worse in the last 2 days. Patient also complains of worsening bilateral hip and knee pain from her chronic osteoarthritis. Patient also complains of persistent headache due to her chronic dental pain. Patient states that she has been taking ibuprofen and Tylenol as needed for pain with minimal relief. Patient denies fever, chills, nausea, vomiting, dizziness, syncope, chest pain, shortness of breath, traumatic injury, heavy lifting, change in vision, abdominal pain or sore throat. MD Complaint: Dental pain; swollen gums; headache; chronic bilateral knee pain -: Gradual, month(s) (4) Location: mouth, lower extremity (Bilateral knee pain) Radiation: non-radiation Severity scale (0 -10): 7 Quality: aching, sharp Consistency: constant Improves with: none Worsens with: eating, movement Associated Symptoms: denies other symptoms, headaches, other (Chronic osteoarthritis of bilateral knees). denies: confusion, chest pain, cough, diaphoresis, fever/chills, loss of appetite, malaise, nausea/vomiting, rash, seizure, shortness of breath, syncope, weakness Treatments Prior to Arrival: NSAID - Related Data Home Medications Medication Instructions Recorded Confirmed Last Taken Ibuprofen [Motrin 800 MG tab] 800 mg PO Q8HR PRN 07/20/20 07/22/20 Unknown Budesonide/Formoterol Fumarate 1 puff INHALATION UNK 07/22/20 07/22/20 Unknown [Symbicort 160-4.5 Mcg Inhaler] predniSONE [Deltasone] 20 mg PO UNK 07/22/20 07/22/20 Unknown Previous Rx's Medication Instructions Recorded Last Taken Type Quetiapine Fumarate [SEROquel] 400 mg PO QHS #30 07/29/20 Unknown Rx Valproic Acid [Depakene] 1,000 mg PO DAILY #30 capsule 07/29/20 Unknown Rx busPIRone [Buspar] 5 mg PO HS #30 07/29/20 Unknown Rx Clindamycin [Clindamycin CAP] 300 mg PO Q8HR #60 capsule 11/05/20 Unknown Rx predniSONE [Deltasone] 40 tab PO QDAY #10 tab 11/05/20 Unknown Rx Allergies Allergy/AdvReac Type Severity Reaction Status Date / Time No Known Allergies Allergy Verified 11/04/14 14:23 ED Review of Systems ROS: Stated complaint: HEADACHE Other details as noted in HPI Constitutional: denies: chills, fever Eyes: denies: eye pain, eye discharge, vision change ENT: dental pain (Multiple bilateral dental caries, swollen gum and dental pain). denies: ear pain, throat pain Respiratory: denies: cough, shortness of breath, wheezing Cardiovascular: denies: chest pain, palpitations Endocrine: no symptoms reported Gastrointestinal: denies: abdominal pain, nausea, diarrhea Genitourinary: denies: urgency, dysuria, discharge Musculoskeletal: arthralgia (Bilateral knee and hip pain). denies: back pain, joint swelling Skin: denies: rash, lesions Neurological: headache. denies: weakness, paresthesias Psychiatric: denies: anxiety, depression Hematological/Lymphatic: denies: easy bleeding, easy bruising ED Past Medical Hx - Past Medical History Hx Congestive Heart Failure: No Hx Diabetes: No Hx Renal Disease: No Hx Arthritis: Yes (Spine and joint pain) Hx Seizures: No Hx Psychiatric Treatment: Yes (DEPRESSION) Hx Asthma: No - Surgical History Additional Surgical History: HERNIA REPAIR - Social History Smoking Status: Never Smoker Substance Use Type: None - Medications Home Medications: Home Medications Medication Instructions Recorded Confirmed Last Taken Type Ibuprofen [Motrin 800 MG tab] 800 mg PO Q8HR PRN 07/20/20 07/22/20 Unknown History Budesonide/Formoterol Fumarate 1 puff INHALATION UNK 07/22/20 07/22/20 Unknown History [Symbicort 160-4.5 Mcg Inhaler] predniSONE [Deltasone] 20 mg PO UNK 07/22/20 07/22/20 Unknown History Quetiapine Fumarate [SEROquel] 400 mg PO QHS #30 07/29/20 Unknown Rx Valproic Acid [Depakene] 1,000 mg PO DAILY #30 capsule 07/29/20 Unknown Rx busPIRone [Buspar] 5 mg PO HS #30 07/29/20 Unknown Rx Clindamycin [Clindamycin CAP] 300 mg PO Q8HR #60 capsule 11/05/20 Unknown Rx predniSONE [Deltasone] 40 tab PO QDAY #10 tab 11/05/20 Unknown Rx ED Physical Exam - General Limitations: No Limitations General appearance: alert, in no apparent distress - Head Head exam: Present: atraumatic, normocephalic, normal inspection - Eye Eye exam: Present: normal appearance, PERRL, EOMI Pupils: Present: normal accommodation - ENT ENT exam: Present: mucous membranes moist, TM's normal bilaterally, normal external ear exam, other (Multiple chronic dental caries with swollen, tender right maxillary and mandibular gingiva; premolar molar teeth tenderness) - Neck Neck exam: Present: normal inspection, full ROM, lymphadenopathy - Respiratory Respiratory exam: Present: normal lung sounds bilaterally. Absent: respiratory distress, wheezes, rhonchi, chest wall tenderness, accessory muscle use, dec reased breath sounds - Cardiovascular Cardiovascular Exam: Present: regular rate, normal rhythm, normal heart sounds. Absent: systolic murmur, diastolic murmur, rubs, gallop - GI/Abdominal GI/Abdominal exam: Present: soft, normal bowel sounds. Absent: tenderness, guarding, rebound, hyperactive bowel sounds, hypoactive bowel sounds - Extremities Exam Extremities exam: Present: normal inspection, full ROM, tenderness (Palpable moderately tender bilateral knees and hips), normal capillary refill. Absent: joint swelling, calf tenderness - Back Exam Back exam: Present: normal inspection, full ROM. Absent: tenderness, CVA tenderness (R), muscle spasm, paraspinal tenderness, vertebral tenderness - Neurological Exam Neurological exam: Present: alert, oriented X3, CN II-XII intact, normal gait, reflexes normal - Psychiatric Psychiatric exam: Present: normal affect, normal mood - Skin Skin exam: Present: warm, dry, intact, normal color. Absent: rash ED Course Vital Signs 11/04/20 23:21 Temperature 97.8 F Pulse Rate 92 H Respiratory 16 Rate Blood Pressure 124/77 O2 Sat by Pulse 100 Oximetry ED Medical Decision Making - Medical Decision Making This is a 50-year-old -[place] female with a history of chronic osteoarthritis, anxiety and depression who presents to the ED with complaint of acute exacerbation of her chronic dental pain characterized by swollen gums and multiple dental caries for the last 4 months intermittently, worse in the last 2 days. Patient also complains of worsening bilateral hip and knee pain from her chronic osteoarthritis. Patient also complains of persistent headache due to her chronic dental pain. Patient states that she has been taking ibuprofen and Tylenol as needed for pain with minimal relief. In the ED, patient is alert and oriented x3 and is not in distress. Patient was treated for pain in the ED and was discharged home on pain medications and antibiotics for chronic gingivitis and dental abscess. Patient was advised to follow-up with her primary care physician or dentist in 7 to 10 days for reevaluation. Patient was advised return to the ED immediately if symptoms get worse. - Differential Diagnosis Chronic gingivitis, dental abscess; osteoarthritis; chronic pain syndrome Critical care attestation.: If time is entered above; I have spent that time in minutes in the direct care of this critically ill patient, excluding procedure time. ED Disposition Clinical Impression: Chronic gingivitis, Dental abscess, Chronic osteoarthritis Disposition: TO HOME OR SELFCARE Is pt being admited?: No Does the pt Need Aspirin: No Condition: Stable Instructions: Dental Abscess, [id number], Arthritis, [id number], Trench Mouth Additional Instructions: Take medication with food, drink plenty of fluids and follow-up with your primary care physician in 5 to 7 days for reevaluation. Return to the ED immediately if symptoms get worse. Prescriptions: Clindamycin [Clindamycin CAP] 300 mg PO Q8HR #60 capsule predniSONE [Deltasone] 40 tab PO QDAY #10 tab Referrals: [facility] [Outside] - 7-10 days [facility] [Outside] - 7-10 days Time of Disposition: 01:55 Print Language: SRI LANKAN
[2020-11-05] MEDS ORDERED: AMOXICILLIN/K CLAV 875/125MG TAB ONE (02:11)
[2020-11-05] MEDS ORDERED: predniSONE 20 MG TAB ONE (02:12)
[2020-11-05] MEDS ORDERED: ACETAMINOPHEN 500 MG TAB ONE (02:12)
[2020-11-05] MEDS ORDERED: ONDANSETRON 4 MG ODT TAB ONE (02:13)
== END 2020-11-05 02:30 | disposition home or self-care (01) ==
LOC: ED 22:33
DX: K05.10 Chronic gingivitis, plaque induced (principal); K04.7 Periapical abscess without sinus; M19.91 Primary osteoarthritis, unspecified site; F32.9 Major depressive disorder, single episode, unspecified; Z98.890 Other specified postprocedural states; Z79.1 Long term (current) use of non-steroidal anti-inflammatories (NSAID); Z79.2 Long term (current) use of antibiotics; Z79.899 Other long term (current) drug therapy
CPT/HCPCS: 99282; J7512; Q0162

== ENCOUNTER 2021-06-03 09:08 | Emergency (ER) | payer MEDICARE ==
[2021-06-03 10:23] LABS: Basophils # (Auto) 0.1 K/mm3 (0.0-0.1); Basophils % (Auto) 0.4 % (0.0-1.8); Hematocrit 30.5 % (30.3-42.9); Hemoglobin 9.6 gm/dl (10.1-14.3); Lymphocytes # (Auto) 1.7 K/mm3 (1.2-5.4); Lymphocytes % (Auto) 11.5 % (13.4-35.0); Mean Corpuscular HGB Conc 32 % (30-34); Mean Corpuscular Volume 85 fl (79-97); Monocytes # (Auto) 1.3 K/mm3 (0.0-0.8); Monocytes % (Auto) 8.7 % (0.0-7.3); Platelet Count 285 K/mm3 (140-440); Red Blood Count 3.58 M/mm3 (3.65-5.03); Red Cell Distribution Width 15.8 % (13.2-15.2)
--- NOTE | 2021-06-03 10:28 | Emergency Department Report ---
HPI <ROSA PINK - Last Filed: 06/03/21 17:34> - HPI HPI: 51-year-old -[place] female presents to the emergency department via EMS from [facility] for evaluation of a fever that she had yesterday. The patient says that she had some nausea with one episode of vomiting, she has some episodes of diarrhea, and some mild abdominal discomfort. The patient says that she was sent to [place] with the diagnosis of a UTI but just started to receive her antibiotics yesterday. She denies any headache, vision change, chest pain, shortness of breath, lower extremity swelling, rash, cough. She denies any significant past medical history. Patient was found to have a temperature of 103.3 F yesterday. She has a psychiatric history of bipolar disorder. <JANIS HUFF - Last Filed: 06/04/21 10:05> - General Chief Complaint: Fever Time Seen by Provider: 06/03/21 09:37 ED Past Medical Hx <ROSA PINK - Last Filed: 06/03/21 17:34> - Past Medical History Hx Congestive Heart Failure: No Hx Diabetes: No Hx Renal Disease: No Hx Arthritis: Yes (Spine and joint pain) Hx Seizures: No Hx Psychiatric Treatment: Yes (DEPRESSION) Hx Asthma: No - Surgical History Additional Surgical History: HERNIA REPAIR - Social History Smoking Status: Never Smoker Substance Use Type: None <JANIS HUFF - Last Filed: 06/04/21 10:05> - Medications Home Medications: Home Medications Medication Instructions Recorded Confirmed Last Taken Type Ibuprofen [Motrin 800 MG tab] 800 mg PO Q8HR PRN 07/20/20 07/22/20 Unknown History Budesonide/Formoterol Fumarate 1 puff INHALATION UNK 07/22/20 07/22/20 Unknown History [Symbicort 160-4.5 Mcg Inhaler] predniSONE [Deltasone] 20 mg PO UNK 07/22/20 07/22/20 Unknown History Quetiapine Fumarate [SEROquel] 400 mg PO QHS #30 07/29/20 Unknown Rx Valproic Acid [Depakene] 1,000 mg PO DAILY #30 capsule 07/29/20 Unknown Rx busPIRone [Buspar] 5 mg PO HS #30 07/29/20 Unknown Rx Clindamycin [Clindamycin CAP] 300 mg PO Q8HR #60 capsule 03/27/21 Unknown Rx predniSONE [Deltasone] 40 tab PO QDAY #10 tab 11/05/20 Unknown Rx ED Review of Systems ROS: Stated complaint: FEELING HOT X1 DAY Other details as noted in HPI <ROSA PINK - Last Filed: 06/03/21 17:34> ROS: Stated complaint: FEELING HOT X1 DAY Other details as noted in HPI Comment: All other systems reviewed and negative Constitutional: fever. denies: malaise Eyes: denies: eye pain, vision change ENT: denies: ear pain, throat pain Respiratory: denies: cough, shortness of breath Cardiovascular: denies: chest pain, palpitations Gastrointestinal: abdominal pain, nausea, vomiting, diarrhea Genitourinary: denies: dysuria, discharge Musculoskeletal: denies: back pain, arthralgia Skin: denies: rash, lesions Neurological: denies: headache, weakness <JANIS HUFF - Last Filed: 06/04/21 10:05> Physical Exam - Physical Exam Vital Signs: Vital Signs 06/03/21 06/03/21 06/03/21 09:13 09:30 09:45 Temperature 98.4 F Pulse Rate 88 85 Respiratory 18 17 Rate Blood Pressure Blood Pressure 100/76 [Left] O2 Sat by Pulse 97 100 100 Oximetry 06/03/21 06/03/21 06/03/21 10:01 10:17 10:31 Temperature Pulse Rate 85 Respiratory 12 Rate Blood Pressure Blood Pressure [Left] O2 Sat by Pulse 100 100 100 Oximetry 06/03/21 06/03/21 06/03/21 10:43 10:45 11:01 Temperature Pulse Rate Respiratory Rate Blood Pressure Blood Pressure [Left] O2 Sat by Pulse 100 100 100 Oximetry 06/03/21 06/03/21 06/03/21 11:15 11:31 11:45 Temperature Pulse Rate Respiratory Rate Blood Pressure Blood Pressure [Left] O2 Sat by Pulse 100 100 100 Oximetry 06/03/21 06/03/21 06/03/21 12:01 12:15 12:31 Temperature Pulse Rate Respiratory Rate Blood Pressure Blood Pressure [Left] O2 Sat by Pulse 99 100 100 Oximetry 06/03/21 06/03/21 06/03/21 12:45 13:01 13:15 Temperature Pulse Rate Respiratory Rate Blood Pressure Blood Pressure [Left] O2 Sat by Pulse 100 100 100 Oximetry 06/03/21 06/03/21 06/03/21 15:23 15:30 15:35 Temperature 102.8 F H Pulse Rate 91 H Respiratory 18 Rate Blood Pressure 102/51 105/49 Blood Pressure 109/54 [Left] O2 Sat by Pulse 100 100 98 Oximetry 06/03/21 06/03/21 16:01 17:26 Temperature 100.0 F H Pulse Rate 90 Respiratory 18 Rate Blood Pressure 105/52 Blood Pressure 102/51 [Left] O2 Sat by Pulse 100 98 Oximetry <ROSA PINK - Last Filed: 06/03/21 17:34> - Physical Exam Vital Signs: Vital Signs 06/03/21 09:13 Temperature 98.4 F Pulse Rate 88 Respiratory 18 Rate Blood Pressure 100/76 [Left] O2 Sat by Pulse 97 Oximetry Physical Exam: GENERAL: The patient is well-developed well-nourished. HENT: Normocephalic. Atraumatic. Patient has moist mucous membranes. EYES: Extraocular motions are intact. Oropharynx is clear without tonsillar hypertrophy, erythema or exudates. NECK: Supple. Trachea is midline. CHEST/LUNGS: Clear to auscultation. No cough heard during examination. There is no respiratory distress noted. HEART/CARDIOVASCULAR: Regular. There is no tachycardia. There is no murmur. ABDOMEN: Abdomen is soft, nontender. No guarding. Patient has hyperactive bowel sounds. There is no abdominal distention. SKIN: Skin is warm and dry. NEURO: The patient is awake, alert, and cooperative. The patient has no focal neurologic deficits. Normal speech. MUSCULOSKELETAL: There is no tenderness or deformity. There is no limitation range of motion. <JANIS HUFF - Last Filed: 06/04/21 10:05> ED Course Vital Signs 06/03/21 06/03/21 06/03/21 09:13 09:30 09:45 Temperature 98.4 F Pulse Rate 88 85 Respiratory 18 17 Rate Blood Pressure Blood Pressure 100/76 [Left] O2 Sat by Pulse 97 100 100 Oximetry 06/03/21 06/03/21 06/03/21 10:01 10:17 10:31 Temperature Pulse Rate 85 Respiratory 12 Rate Blood Pressure Blood Pressure [Left] O2 Sat by Pulse 100 100 100 Oximetry 06/03/21 06/03/21 06/03/21 10:43 10:45 11:01 Temperature Pulse Rate Respiratory Rate Blood Pressure Blood Pressure [Left] O2 Sat by Pulse 100 100 100 Oximetry 06/03/21 06/03/21 06/03/21 11:15 11:31 11:45 Temperature Pulse Rate Respiratory Rate Blood Pressure Blood Pressure [Left] O2 Sat by Pulse 100 100 100 Oximetry 06/03/21 06/03/21 06/03/21 12:01 12:15 12:31 Temperature Pulse Rate Respiratory Rate Blood Pressure Blood Pressure [Left] O2 Sat by Pulse 99 100 100 Oximetry 06/03/21 06/03/21 06/03/21 12:45 13:01 13:15 Temperature Pulse Rate Respiratory Rate Blood Pressure Blood Pressure [Left] O2 Sat by Pulse 100 100 100 Oximetry 06/03/21 06/03/21 06/03/21 15:23 15:30 15:35 Temperature 102.8 F H Pulse Rate 91 H Respiratory 18 Rate Blood Pressure 102/51 105/49 Blood Pressure 109/54 [Left] O2 Sat by Pulse 100 100 98 Oximetry 06/03/21 06/03/21 16:01 17:26 Temperature 100.0 F H Pulse Rate 90 Respiratory 18 Rate Blood Pressure 105/52 Blood Pressure 102/51 [Left] O2 Sat by Pulse 100 98 Oximetry <ROSA PINK - Last Filed: 06/03/21 17:34> Vital Signs 06/03/21 09:13 Temperature 98.4 F Pulse Rate 88 Respiratory 18 Rate Blood Pressure 100/76 [Left] O2 Sat by Pulse 97 Oximetry <JANIS HUFF - Last Filed: 06/04/21 10:05> ED Medical Decision Making - Lab Data Result diagrams: 06/03/21 10:06 06/03/21 10:06 - Medical Decision Making rapid influenza test negative. Patient will be transferred to [facility] Vital signs are stable. <ROSA PINK - Last Filed: 06/03/21 17:34> - Lab Data Result diagrams: 06/03/21 10:06 06/03/21 10:06 Lab Results 06/03/21 06/03/21 06/03/21 Range/Units 10:06 10:06 Unknown WBC 14.6 H (4.5-11.0) K/mm3 RBC 3.58 L (3.65-5.03) M/mm3 Hgb 9.6 L (10.1-14.3) gm/dl Hct 30.5 (30.3-42.9) % MCV 85 (79-97) fl MCH 27 L (28-32) pg MCHC 32 (30-34) % RDW 15.8 H (13.2-15.2) % Plt Count 285 (140-440) K/mm3 Lymph % (Auto) 11.5 L (13.4-35.0) % [place] % (Auto) 8.7 H (0.0-7.3) % Eos % (Auto) 0.0 (0.0-4.3) % Baso % (Auto) 0.4 (0.0-1.8) % Lymph # (Auto) 1.7 (1.2-5.4) K/mm3 [place] # (Auto) 1.3 H (0.0-0.8) K/mm3 Eos # (Auto) 0.0 (0.0-0.4) K/mm3 Baso # (Auto) 0.1 (0.0-0.1) K/mm3 Seg Neutrophils % 79.4 H (40.0-70.0) % Seg Neutrophils # 11.6 H (1.8-7.7) K/mm3 Sodium 136 L (137-145) mmol/L Potassium 3.6 (3.6-5.0) mmol/L Chloride 100.2 (98-107) mmol/L Carbon Dioxide 25 (22-30) mmol/L Anion Gap 14 mmol/L BUN 12 (7-17) mg/dL Creatinine 1.0 (0.6-1.2) mg/dL Estimated GFR > 60 ml/min BUN/Creatinine Ratio 12 % Glucose 107 H (65-100) mg/dL Calcium 8.6 (8.4-10.2) mg/dL Total Bilirubin 0.80 (0.1-1.2) mg/dL AST 25 (5-40) units/L ALT 12 (7-56) units/L Alkaline Phosphatase 48 (35-129) units/L Total Protein 7.2 (6.3-8.2) g/dL Albumin 3.3 L (3.9-5) g/dL Albumin/Globulin Ratio 0.8 % Urine Color Yellow (Yellow) Urine Turbidity Clear (Clear) Urine pH 6.0 (5.0-7.0) Ur Specific [place] 1.002 L (1.003-1.030) Urine Protein <15 mg/dl (Negative) mg/dL Urine Glucose (UA) Neg (Negative) mg/dL Urine Ketones Neg (Negative) mg/dL Urine Blood Mod (Negative) Urine Nitrite Neg (Negative) Urine Bilirubin Neg (Negative) Urine Urobilinogen < 2.0 (<2.0) mg/dL Ur Leukocyte Esterase Neg (Negative) Urine WBC (Auto) 7.0 H (0.0-6.0) /HPF Urine RBC (Auto) 5.0 (0.0-6.0) /HPF U Epithel Cells (Auto) < 1.0 (0-13.0) /HPF Urine Bacteria (Auto) 2+ (Negative) /HPF Urine Mucus Few /HPF Influenza A (Rapid) (Negative) Influenza B (Rapid) (Negative) 06/03/21 Range/Units Unknown WBC (4.5-11.0) K/mm3 RBC (3.65-5.03) M/mm3 Hgb (10.1-14.3) gm/dl Hct (30.3-42.9) % MCV (79-97) fl MCH (28-32) pg MCHC (30-34) % RDW (13.2-15.2) % Plt Count (140-440) K/mm3 Lymph % (Auto) (13.4-35.0) % [place] % (Auto) (0.0-7.3) % Eos % (Auto) (0.0-4.3) % Baso % (Auto) (0.0-1.8) % Lymph # (Auto) (1.2-5.4) K/mm3 [place] # (Auto) (0.0-0.8) K/mm3 Eos # (Auto) (0.0-0.4) K/mm3 Baso # (Auto) (0.0-0.1) K/mm3 Seg Neutrophils % (40.0-70.0) % Seg Neutrophils # (1.8-7.7) K/mm3 Sodium (137-145) mmol/L Potassium (3.6-5.0) mmol/L Chloride (98-107) mmol/L Carbon Dioxide (22-30) mmol/L Anion Gap mmol/L BUN (7-17) mg/dL Creatinine (0.6-1.2) mg/dL Estimated GFR ml/min BUN/Creatinine Ratio % Glucose (65-100) mg/dL Calcium (8.4-10.2) mg/dL Total Bilirubin (0.1-1.2) mg/dL AST (5-40) units/L ALT (7-56) units/L Alkaline Phosphatase (35-129) units/L Total Protein (6.3-8.2) g/dL Albumin (3.9-5) g/dL Albumin/Globulin Ratio % Urine Color (Yellow) Urine Turbidity (Clear) Urine pH (5.0-7.0) Ur Specific [place] (1.003-1.030) Urine Protein (Negative) mg/dL Urine Glucose (UA) (Negative) mg/dL Urine Ketones (Negative) mg/dL Urine Blood (Negative) Urine Nitrite (Negative) Urine Bilirubin (Negative) Urine Urobilinogen (<2.0) mg/dL Ur Leukocyte Esterase (Negative) Urine WBC (Auto) (0.0-6.0) /HPF Urine RBC (Auto) (0.0-6.0) /HPF U Epithel Cells (Auto) (0-13.0) /HPF Urine Bacteria (Auto) (Negative) /HPF Urine Mucus /HPF Influenza A (Rapid) Negative (Negative) Influenza B (Rapid) Negative (Negative) - Radiology Data Radiology results: image reviewed interpreted by me: Chest x-ray does not show any acute process. There are no pleural effusions, obvious pneumonia and there is no pneumothorax. No widened mediastinum. Abdominal x-ray shows nonspecific nonobstructive bowel gas. No free air - Medical Decision Making This patient presented to the emergency department for evaluation of a fever that she had yesterday, some nausea with occasional vomiting, and some diarrhea. On examination the patient is resting comfortably, has normal heart and lung sounds to auscultation, no significant abdominal tenderness to palpation, and the patient does not appear in any respiratory or acute distress. The patient initially does not have any fever but she may have been treated with antipyretics. Chest x-ray does not show any pneumonia, pleural effusions, or any other acute process. Abdominal x-ray shows nonspecific nonobstructive bowel gas and no free air. Labs have been mostly unremarkable including CBC, metabolic panel, urinalysis, and is negative for influenza a and B. Apparently the patient went to [facility] with a diagnosis of a UTI, but it appears to have resolved with only 7 WBCs in the urine and the patient is currently on antibiotics. I am unable to test the patient for COVID-19 [id number], but the patient most likely was tested for COVID-19 prior to acceptance to [facility] and laboratory stud ies and imaging do not appear consistent with a severe Covid infection. The patient did spike a fever during her ED course and was treated with Tylenol, but refused Toradol. Her temperature went down to 100 F and the rest of her vital signs have been reassuring throughout her ED course and the patient was discharged back to [facility] to continue her psychiatric evaluation. <JANIS HUFF S - Last Filed: 06/04/21 10:05> Critical care attestation.: If time is entered above; I have spent that time in minutes in the direct care of this critically ill patient, excluding procedure time. <ROSA PINK - Last Filed: 06/03/21 17:34> Critical Care Time: No Critical care attestation.: If time is entered above; I have spent that time in minutes in the direct care of this critically ill patient, excluding procedure time. <JANIS HUFF - Last Filed: 06/04/21 10:05> ED Disposition Is pt being admited?: No Does the pt Need Aspirin: No <ROSA PINK - Last Filed: 06/03/21 17:34> Is pt being admited?: No Time of Disposition: 16:06 <JANIS HUFF - Last Filed: 06/04/21 10:05> Clinical Impression: Viral syndrome, Fever, Medical clearance for psychiatric admission Disposition: [facility] Condition: Stable Instructions: Fever, Adult, Medical Screening Exam, Viral Illness, Adult Additional Instructions: Please follow-up with the facility physician. Please follow-up with your primary care physician once you are done at [facility]. You can use Tylenol every 4-6 hours and ibuprofen every 6-8 hours, using dosing on the back of the bottle, as needed for any fever or discomfort. Increase your oral rehydration. Return to the emergency department with any worsening of your symptoms, new or concerning symptoms not addressed during this current emergency department visit, or with any acute distress. Referrals: PRIMARY CARE, [Primary Care Provider] - 3-5 Days
[2021-06-03 10:38] LABS: Alanine Aminotransferase 12 units/L (7-56); Albumin 3.3 g/dL (3.9-5); BUN/Creatinine Ratio 12; Blood Urea Nitrogen 12 mg/dL (7-17); Calcium 8.6 mg/dL (8.4-10.2); Hemolysis Index 3
--- NOTE | 2021-06-03 11:52 | XRay Report ---
ABDOMEN 2 VIEW(S) with PA chest radiograph INDICATION / CLINICAL INFORMATION: Abdominal pain. Cough. COMPARISON: None. FINDINGS: TUBES / LINES: None. BOWEL GAS PATTERN: The bowel gas pattern appears nonobstructive. ADDITIONAL FINDINGS: The accompanying chest radiograph demonstrates no evidence of acute cardiopulmon ophelia process. IMPRESSION: 1. No radiographic evidence of acute intra-abdominal process. Signer Name: Shyla Correia MD Signed: 06/03/2021 11:47 AM Workstation Name: [id number]
[2021-06-03 14:45] LABS: Bacteria,Urine 2+ /HPF (Negative); Bilirubin,Urine NEG (Negative); Blood,Urine MOD (Negative); Color,Urine Yellow (Yellow); Mucus,Urine FEW /HPF; Protein,Urine <15 mg/dL mg/dL (Negative); Urobilinogen,Urine < 2.0 mg/dL (<2.0)
[2021-06-03] MEDS ORDERED: SODIUM CHLORIDE 0.9% 500 ML 500 ML IV ONE (15:32)
[2021-06-03] MEDS ORDERED: ACETAMINOPHEN 325 MG TAB PO ONE (15:32)
[2021-06-03] MEDS: KETOROLAC 30 MG/1 ML INJ IV ONE ×2 (15:52→15:55)
[2021-06-03 20:02] VITALS: BP 97/57
== END 2021-06-03 19:50 ==
LOC: ED 09:08
DX: R50.9 Fever, unspecified (principal); B34.9 Viral infection, unspecified; Z04.6 Encounter for general psychiatric examination, requested by authority; R11.2 Nausea with vomiting, unspecified; R19.7 Diarrhea, unspecified; R10.9 Unspecified abdominal pain; M19.90 Unspecified osteoarthritis, unspecified site; Z98.890 Other specified postprocedural states
CPT/HCPCS: 36415; 74022; 80053; 81001; 85025; 87400; 99284; J1885; J7040; 96360; 96361

== ENCOUNTER 2021-07-10 12:21 | Emergency (ER) | payer MEDICARE ==
[2021-07-10 12:36] VITALS: BP 134/78
[2021-07-10] MEDS ORDERED: KETOROLAC 30 MG/1 ML INJ IM ONE (13:32)
--- NOTE | 2021-07-10 13:37 | Emergency Department Report ---
ED Extremity Problem HPI - General Chief complaint: Pain General Stated complaint: REAL SHARP ARTHRITIS PAIN ON R SIDE Source: patient Mode of arrival: Wheelchair Limitations: No Limitations - History of Present Illness Initial comments: 51-year-old -[place] female presents to the emergency room complaining of arthritis flareup in her lower right side. Patient states her knee and hip hurts. She states that she is is on ibuprofen 800 mg and she takes Tylenol 500 mg. Patient states that she had ran out of her 800 mg of Motrin and it supposed to be now ordered. Patient denies any recent trauma. She came in by private vehicle. She does have [address] Yang Mack [address] Lacie Singletary. Patient states her pain is in the usual state. MD Complaint: extremity pain -: year(s) Location: right, lower extremity History of Same: Yes -: Yes arthralgia Severity scale (0 -10): 9 Quality: sharp Consistency: intermittent Improves with: medication Worsens with: nothing Associated Symptoms: denies other symptoms - Related Data Home Medications Medication Instructions Recorded Confirmed Last Taken Ibuprofen [Motrin 800 MG tab] 800 mg PO Q8HR PRN 07/20/20 07/22/20 Unknown Budesonide/Formoterol Fumarate 1 puff INHALATION UNK 07/22/20 07/22/20 Unknown [Symbicort 160-4.5 Mcg Inhaler] predniSONE [Deltasone] 20 mg PO UNK 07/22/20 07/22/20 Unknown Previous Rx's Medication Instructions Recorded Last Taken Type Quetiapine Fumarate [SEROquel] 400 mg PO QHS #30 07/29/20 Unknown Rx Valproic Acid [Depakene] 1,000 mg PO DAILY #30 capsule 07/29/20 Unknown Rx busPIRone [Buspar] 5 mg PO HS #30 07/29/20 Unknown Rx Clindamycin [Clindamycin CAP] 300 mg PO Q8HR #60 capsule 11/05/20 Unknown Rx predniSONE [Deltasone] 40 tab PO QDAY #10 tab 11/05/20 Unknown Rx Ibuprofen [Motrin 800 MG tab] 800 mg PO Q8HR PRN #21 tablet 07/10/21 Unknown Rx Allergies Allergy/AdvReac Type Severity Reaction Status Date / Time No Known Allergies Allergy Verified 07/10/21 12:34 ED Review of Systems ROS: Stated complaint: REAL SHARP ARTHRITIS PAIN ON R SIDE Other details as noted in HPI Comment: All other systems reviewed and negative ED Past Medical Hx - Past Medical History Hx Congestive Heart Failure: No Hx Diabetes: No Hx Renal Disease: No Hx Arthritis: Yes (Spine and joint pain) Hx Seizures: No Hx Psychiatric Treatment: Yes (DEPRESSION) Hx Asthma: No - Surgical History Additional Surgical History: HERNIA REPAIR - Social History Smoking Status: Never Smoker Substance Use Type: None - Medications Home Medications: Home Medications Medication Instructions Recorded Confirmed Last Taken Type Ibuprofen [Motrin 800 MG tab] 800 mg PO Q8HR PRN 07/20/20 07/22/20 Unknown History Budesonide/Formoterol Fumarate 1 puff INHALATION UNK 07/22/20 07/22/20 Unknown History [Symbicort 160-4.5 Mcg Inhaler] predniSONE [Deltasone] 20 mg PO UNK 07/22/20 07/22/20 Unknown History Quetiapine Fumarate [SEROquel] 400 mg PO QHS #30 07/29/20 Unknown Rx Valproic Acid [Depakene] 1,000 mg PO DAILY #30 capsule 07/29/20 Unknown Rx busPIRone [Buspar] 5 mg PO HS #30 07/29/20 Unknown Rx Clindamycin [Clindamycin CAP] 300 mg PO Q8HR #60 capsule 11/05/20 Unknown Rx predniSONE [Deltasone] 40 tab PO QDAY #10 tab 11/05/20 Unknown Rx Ibuprofen [Motrin 800 MG tab] 800 mg PO Q8HR PRN #21 tablet 07/10/21 Unknown Rx ED Physical Exam - General Limitations: No Limitations General appearance: alert, in no apparent distress - Head Head exam: Present: atraumatic, normocephalic - Eye Eye exam: Present: normal appearance - ENT ENT exam: Present: mucous membranes moist - Neck Neck exam: Present: normal inspection - Respiratory Respiratory exam: Absent: respiratory distress, accessory muscle use - Cardiovascular Cardiovascular Exam: Present: regular rate, normal rhythm. Absent: systolic m urmur, diastolic murmur, rubs, gallop - GI/Abdominal GI/Abdominal exam: Present: soft, normal bowel sounds - Extremities Exam Extremities exam: Present: normal inspection - Back Exam Back exam: Present: normal inspection - Neurological Exam Neurological exam: Present: alert, oriented X3 - Psychiatric Psychiatric exam: Present: normal affect, normal mood - Skin Skin exam: Present: warm, dry, intact, normal color. Absent: rash ED Course Vital Signs 07/10/21 12:34 Temperature 98.0 F Pulse Rate 86 Blood Pressure 134/78 O2 Sat by Pulse 100 Oximetry ED Medical Decision Making - Medical Decision Making 51-year-old -[place] female presents to the emergency room complaining of arthritis flareup in her lower right side. Patient states her knee and hip hurts. She states that she is is on ibuprofen 800 mg and she takes Tylenol 500 mg. Patient states that she had ran out of her 800 mg of Motrin and it supposed to be now ordered. Patient denies any recent trauma. She came in by private vehicle. She does have [address] Yang Mack [address] Dr[address] Lacie Singletary. Patient states her pain is in the usual state. Offered patient a Toradol injection. Discussed with patient I will refill her ibuprofen 800 mg. Patient is to continue to follow-up with her primary care providers for this chronic disease. Critical care attestation.: If time is entered above; I have spent that time in minutes in the direct care of this critically ill patient, excluding procedure time. ED Disposition Clinical Impression: Arthritis Disposition: 01 HOME / SELF CARE / HOMELESS Is pt being admited?: No Does the pt Need Aspirin: No Condition: Stable Instructions: Arthritis, [id number] Additional Instructions: Please take pain medication as needed. Follow-up with your primary care provider. Prescriptions: Ibuprofen [Motrin 800 MG tab] 800 mg PO Q8HR PRN #21 tablet PRN Reason: Pain , Severe (7-10) Referrals: PRIMARY CAREMD [Primary Care Provider] - 3-5 Days YANG MACK MD [Staff Physician] - 3-5 Days Time of Disposition: 13:39
== END 2021-07-10 14:19 | disposition home or self-care (01) ==
LOC: ED 12:21
DX: M19.90 Unspecified osteoarthritis, unspecified site (principal); F32.9 Major depressive disorder, single episode, unspecified; Z79.899 Other long term (current) drug therapy
CPT/HCPCS: 96372; 99281; J1885

== ENCOUNTER 2021-07-24 16:35 | Emergency (ER) | payer MEDICARE ==
[2021-07-24 16:50] VITALS: BP 109/73
[2021-07-24] MEDS ORDERED: KETOROLAC 60 MG/2 ML INJ IM ONE (18:21)
[2021-07-24 18:41] LABS: Bilirubin,Urine NEG (Negative); Blood,Urine NEG (Negative); Color,Urine Yellow (Yellow); Mucus,Urine FEW /HPF; Protein,Urine <15 mg/dL mg/dL (Negative); Urobilinogen,Urine < 2.0 mg/dL (<2.0)
--- NOTE | 2021-07-24 18:48 | Emergency Department Report ---
ED General Adult HPI - General Chief complaint: Urogenital-Female Stated complaint: SHARP PAIN ON R SIDE, AND VAGINAL DISCHARGE Time Seen by Provider: 07/24/21 17:39 Source: patient Mode of arrival: Wheelchair Limitations: No Limitations - History of Present Illness Initial comments: Patient is a 51-year-old female presents emergency room with 2 complaints. She states her first complaint is right thigh and right knee pain which has been exacerbating over the last few days. Patient states that she has a history of arthritis. She states over the last couple days she has noticed some swelling present in her leg. She denies any calf pain. She denies any numbness or weakness. She denies any fall or injury. Patient is also complaining of dysuri a for a few days. She states that she is also been having an increase in vaginal discharge. She denies any vaginal itching or burning. She denies any concerns for STDs and politely declines STD prophylactic treatment. No allergies to medications. Severity scale (0 -10): 10 - Related Data Home Medications Medication Instructions Recorded Confirmed Last Taken Ibuprofen [Motrin 800 MG tab] 800 mg PO Q8HR PRN 07/20/20 07/22/20 Unknown Budesonide/Formoterol Fumarate 1 puff INHALATION UNK 07/22/20 07/22/20 Unknown [Symbicort 160-4.5 Mcg Inhaler] predniSONE [Deltasone] 20 mg PO UNK 07/22/20 07/22/20 Unknown Previous Rx's Medication Instructions Recorded Last Taken Type Quetiapine Fumarate [SEROquel] 400 mg PO QHS #30 07/29/20 Unknown Rx Valproic Acid [Depakene] 1,000 mg PO DAILY #30 capsule 07/29/20 Unknown Rx busPIRone [Buspar] 5 mg PO HS #30 07/29/20 Unknown Rx Clindamycin [Clindamycin CAP] 300 mg PO Q8HR #60 capsule 11/05/20 Unknown Rx predniSONE [Deltasone] 40 tab PO QDAY #10 tab 11/05/20 Unknown Rx Ibuprofen [Motrin 800 MG tab] 800 mg PO Q8HR PRN #21 tablet 07/10/21 Unknown Rx Fluconazole [Diflucan TAB] 150 mg PO QDAY 1 Days #3 tablet 07/24/21 Unknown Rx Meloxicam [Mobic] 7.5 mg PO QDAY #20 tablet 07/24/21 Unknown Rx metroNIDAZOLE [Flagyl] 500 mg PO BID 7 Days #14 tablet 07/24/21 Unknown Rx Allergies Allergy/AdvReac Type Severity Reaction Status Date / Time No Known Allergies Allergy Verified 07/24/21 16:50 ED Review of Systems ROS: Stated complaint: SHARP PAIN ON R SIDE, AND VAGINAL DISCHARGE Other details as noted in HPI Comment: All other systems reviewed and negative ED Past Medical Hx - Past Medical History Hx Congestive Heart Failure: No Hx Diabetes: No Hx Renal Disease: No Hx Arthritis: Yes (Spine and joint pain) Hx Seizures: No Hx Psychiatric Treatment: Yes (DEPRESSION) Hx Asthma: No - Surgical History Additional Surgical History: HERNIA REPAIR - Social History Smoking Status: Never Smoker Substance Use Type: None - Medications Home Medications: Home Medications Medication Instructions Recorded Confirmed Last Taken Type Ibuprofen [Motrin 800 MG tab] 800 mg PO Q8HR PRN 07/20/20 07/22/20 Unknown History Budesonide/Formoterol Fumarate 1 puff INHALATION UNK 07/22/20 07/22/20 Unknown History [Symbicort 160-4.5 Mcg Inhaler] predniSONE [Deltasone] 20 mg PO UNK 07/22/20 07/22/20 Unknown History Quetiapine Fumarate [SEROquel] 400 mg PO QHS #30 07/29/20 Unknown Rx Valproic Acid [Depakene] 1,000 mg PO DAILY #30 capsule 07/29/20 Unknown Rx busPIRone [Buspar] 5 mg PO HS #30 07/29/20 Unknown Rx Clindamycin [Clindamycin CAP] 300 mg PO Q8HR #60 capsule 11/05/20 Unknown Rx predniSONE [Deltasone] 40 tab PO QDAY #10 tab 11/05/20 Unknown Rx Ibuprofen [Motrin 800 MG tab] 800 mg PO Q8HR PRN #21 tablet 07/10/21 Unknown Rx Fluconazole [Diflucan TAB] 150 mg PO QDAY 1 Days #3 tablet 07/24/21 Unknown Rx Meloxicam [Mobic] 7.5 mg PO QDAY #20 tablet 07/24/21 Unknown Rx metroNIDAZOLE [Flagyl] 500 mg PO BID 7 Days #14 tablet 07/24/21 Unknown Rx ED Physical Exam - General Limitations: No Limitations General appearance: alert, in no apparent distress - Head Head exam: Present: atraumatic, normocephalic - Eye Eye exam: Present: normal appearance - ENT ENT exam: Present: mucous membranes moist - Respiratory Respiratory exam: Present: normal lung sounds bilaterally. Absent: respiratory distress, wheezes, rales, rhonchi, stridor, chest wall tenderness, accessory muscle use, decreased breath sounds, prolonged expiratory - Cardiovascular Cardiovascular Exam: Present: regular rate, normal rhythm, normal heart sounds. Absent: systolic murmur, diastolic murmur, rubs, gallop - GI/Abdominal GI/Abdominal exam: Present: soft, normal bowel sounds. Absent: distended, tenderness, guarding, rebound, rigid - Extremities Exam Extremities exam: Present: other (mild ttp to the left thigh and left knee, mild non pitting edema, no skin changes, no deformity, no bony ttp, FROM, neurovascularly intact) - Neurological Exam Neurological exam: Present: alert, oriented X3 - Psychiatric Psychiatric exam: Present: normal affect, normal mood - Skin Skin exam: Present: warm, dry, intact ED Course Vital Signs 07/24/21 07/24/21 07/24/21 16:48 18:29 20:21 Temperature 98.2 F Pulse Rate 86 81 Respiratory 14 16 17 Rate Blood Pressure 109/73 [Left] O2 Sat by Pulse 100 100 Oximetry ED Medical Decision Making - Radiology Data Radiology results: report reviewed Ordering Physician: ANTOLIN CALHOUN Date of Service: 07/24/21 Procedure(s): VL venous duplex LE RT Accession Number(s): [id number] cc: ANTOLIN CALHOUN DUPLEX DOPPLER LOWER EXTREMITY VEINS, RIGHT INDICATION / CLINICAL INFORMATION: right leg pain and swelling. TECHNIQUE: Duplex doppler imaging was performed through the veins of the right lower extremity using venous compression and other maneuvers. COMPARISON: None available. FINDINGS: RIGHT COMMON FEMORAL VEIN: Negative. RIGHT FEMORAL VEIN: Negative. RIGHT POPLITEAL VEIN: Negative. RIGHT CALF VEINS: Negative. ADDITIONAL FINDINGS: None. IMPRESSION: 1. No sonographic evidence for DVT in the right lower extremity. Signer Name: Atilio Patterson MD Signed: 07/24/2021 8:52 PM Workstation Name: [id number] Transcribed By: DB Dictated By: ATILIO PATTERSON MD Electronically Authenticated By: ATILIO PATTERSON MD Signed Date/Time: 07/24/212051 DD/ 50 TD/TT: - Medical Decision Making Patient is a 51-year-old female presents emergency room with 2 complaints. She states her first complaint is right thigh and right knee pain which has been exacerbating over the last few days. Patient states that she has a history of arthritis. She states over the last couple days she has noticed some swelling present in her leg. She denies any calf pain. She denies any numbness or weakness. She denies any fall or injury. Patient is also complaining of dysuria for a few days. She states that she is also been having an increase in vaginal discharge. She denies any vaginal itching or burning. She denies any concerns for STDs and politely declines STD prophylactic treatment. No allergies to medications. Vitals are normal. On exam:mild ttp to the left thigh and left knee, mild non pitting edema, no skin changes, no deformity, no bony ttp, FROM, neurovascularly intact, no abdominal tenderness on exam. Ultrasound right lower extremity 1. No sonographic evidence for DVT in the right lower extremity. No signs of infection, cellulitis or septic joint. Patient has 2+ distal pulses, no signs of acute arterial occlusion. UA is within normal limits, no signs of UTI, I again asked patient if she was confirmed for STDs and she again states no that she is not sexually active. Patient will be treated for vaginitis and referred to [facility]. Advised patient Please take medication as prescribed. Follow-up with your primary care doctor. Follow-up with [facility]. Return to emergency room for any new or worsening symptoms. Critical care attestation.: If time is entered above; I have spent that time in minutes in the direct care of this critically ill patient, excluding procedure time. ED Disposition Clinical Impression: Right leg pain, Dysuria, Vaginal discharge Disposition: HOME / SELF CARE / HOMELESS Is pt being admited?: No Does the pt Need Aspirin: No Condition: Stable Instructions: Musculoskeletal Pain, Vaginitis Additional Instructions: Please take medication as prescribed. Follow-up with your primary care doctor. Follow-up with [facility]. Return to emergency room for any new or worsening symptoms. Prescriptions: Fluconazole [Diflucan TAB] 150 mg PO QDAY 1 Days #3 tablet metroNIDAZOLE [Flagyl] 500 mg PO BID 7 Days #14 tablet Meloxicam [Mobic] 7.5 mg PO QDAY #20 tablet Referrals: GUILHERME NELSON MD [Staff Physician] - 3-5 Days [facility] [Provider Group] - 3-5 Days BIB KYLE MD [Staff Physician] - 3-5 Days Time of Disposition: 20:09 Print Language: LEBANESE
--- NOTE | 2021-07-24 20:56 | Vascular Lab Report ---
DUPLEX DOPPLER LOWER EXTREMITY VEINS, RIGHT INDICATION / CLINICAL INFORMATION: right leg pain and swelling. TECHNIQUE: Duplex doppler imaging was performed through the veins of the right lower extremity using venous compression and other maneuvers. COMPARISON: None available. FINDINGS: RIGHT COMMON FEMORAL VEIN: Negative. RIGHT FEMORAL VEIN: Negative. RIGHT POPLITEAL VEIN: Negative. RIGHT CALF VEINS: Negative. ADDITIONAL FINDINGS: None. IMPRESSION: 1. No sonographic evidence for DVT in the right lower extremity. Signer Name: Atilio Patterson MD Signed: 07/24/2021 8:52 PM Workstation Name: [id number]
== END 2021-07-24 20:15 | disposition home or self-care (01) ==
LOC: ED 16:35
DX: M25.561 Pain in right knee (principal); M79.651 Pain in right thigh; N89.8 Other specified noninflammatory disorders of vagina; R30.0 Dysuria; M19.90 Unspecified osteoarthritis, unspecified site; F32.9 Major depressive disorder, single episode, unspecified; Z79.899 Other long term (current) drug therapy
CPT/HCPCS: 81001; 93971; 96372; 99284; J1885

== ENCOUNTER 2021-10-25 22:36 | Emergency (ER) | payer MEDICARE ==
[2021-10-25 23:39] LABS: Basophils % (Auto) 0.7 % (0.0-1.8); Eosinophils # (Auto) 0.1 K/mm3 (0.0-0.4); Eosinophils % (Auto) 1.1 % (0.0-4.3); Hematocrit 36.1 % (30.3-42.9); Hemoglobin 11.4 gm/dl (10.1-14.3); Lymphocytes # (Auto) 3.2 K/mm3 (1.2-5.4); Lymphocytes % (Auto) 48.7 % (13.4-35.0); Mean Corpuscular HGB Conc 32 % (30-34); Mean Corpuscular Volume 88 fl (79-97); Monocytes # (Auto) 0.4 K/mm3 (0.0-0.8); Monocytes % (Auto) 6.7 % (0.0-7.3); Platelet Count 243 K/mm3 (140-440); Red Cell Distribution Width 15.7 % (13.2-15.2)
[2021-10-26 01:20] LABS: Mucus,Urine FEW /HPF
[2021-10-26 01:25] LABS: Bilirubin,Urine Negative (Negative); Blood,Urine Negative (Negative); Color,Urine Yellow (Yellow)
[2021-10-26 01:26] LABS: Urobilinogen,Urine < 2.0 mg/dL (<2.0)
[2021-10-26] MEDS ORDERED: KETOROLAC 60 MG/2 ML INJ IM STA (05:00)
--- NOTE | 2021-10-26 05:20 | Emergency Department Report ---
ED General Adult HPI - General Chief complaint: Vaginal Bleeding Stated complaint: VAGINAL BLEEDING/ABDOMINAL PAIN Time Seen by Provider: 10/26/21 03:17 Source: patient, family, EMS Mode of arrival: Ambulatory Limitations: No Limitations - History of Present Illness Initial comments: 51-year-old F Italian female with an elevated BMI and a past medical history of arthritis presents emergency department complaining of a few issues. Issues when she is been having some painful vaginal bleeding with cramping and aches off and on with her cycle. Next still scheduled to see the dentist next month but been having some dull throbbing achiness to her teeth. Advised with present: Pain to her hips knees no significant findings at the evaluation -: Gradual Severity scale (0 -10): 8 - Related Data Home Medications Medication Instructions Recorded Confirmed Last Taken Ibuprofen [Motrin 800 MG tab] 800 mg PO Q8HR PRN 07/20/20 07/22/20 Unknown Budesonide/Formoterol Fumarate 1 puff INHALATION UNK 07/22/20 07/22/20 Unknown [Symbicort 160-4.5 Mcg Inhaler] predniSONE [Deltasone] 20 mg PO UNK 07/22/20 07/22/20 Unknown Previous Rx's Medication Instructions Recorded Last Taken Type Quetiapine Fumarate [SEROquel] 400 mg PO QHS #30 07/29/20 Unknown Rx Valproic Acid [Depakene] 1,000 mg PO DAILY #30 capsule 07/29/20 Unknown Rx busPIRone [Buspar] 5 mg PO HS #30 07/29/20 Unknown Rx Clindamycin [Clindamycin CAP] 300 mg PO Q8HR #60 capsule 11/05/20 Unknown Rx predniSONE [Deltasone] 40 tab PO QDAY #10 tab 11/05/20 Unknown Rx Ibuprofen [Motrin 800 MG tab] 800 mg PO Q8HR PRN #21 tablet 07/10/21 Unknown Rx Fluconazole [Diflucan TAB] 150 mg PO QDAY 1 Days #3 tablet 07/24/21 Unknown Rx metroNIDAZOLE [Flagyl] 500 mg PO BID 7 Days #14 tablet 07/24/21 Unknown Rx Meloxicam [Mobic] 7.5 mg PO QDAY #20 tablet 10/26/21 Unknown Rx Allergies Allergy/AdvReac Type Severity Reaction Status Date / Time No Known Allergies Allergy Verified 07/24/21 16:50 ED Review of Systems ROS: Stated complaint: VAGINAL BLEEDING/ABDOMINAL PAIN Other details as noted in HPI Comment: All other systems reviewed and negative Constitutional: no symptoms reported Eyes: as per HPI ED Past Medical Hx - Past Medical History Previous Medical History?: Yes Hx Congestive Heart Failure: No Hx Diabetes: No Hx Renal Disease: No Hx Arthritis: Yes (Spine and joint pain) Hx Seizures: No Hx Psychiatric Treatment: Yes (DEPRESSION) Hx Asthma: No - Surgical History Past Surgical History?: Yes Additional Surgical History: HERNIA REPAIR - Social History Smoking Status: Never Smoker Substance Use Type: None - Medications Home Medications: Home Medications Medication Instructions Recorded Confirmed Last Taken Type Ibuprofen [Motrin 800 MG tab] 800 mg PO Q8HR PRN 07/20/20 07/22/20 Unknown History Budesonide/Formoterol Fumarate 1 puff INHALATION UNK 07/22/20 07/22/20 Unknown History [Symbicort 160-4.5 Mcg Inhaler] predniSONE [Deltasone] 20 mg PO UNK 07/22/20 07/22/20 Unknown History Quetiapine Fumarate [SEROquel] 400 mg PO QHS #30 07/29/20 Unknown Rx Valproic Acid [Depakene] 1,000 mg PO DAILY #30 capsule 07/29/20 Unknown Rx busPIRone [Buspar] 5 mg PO HS #30 07/29/20 Unknown Rx Clindamycin [Clindamycin CAP] 300 mg PO Q8HR #60 capsule 11/05/20 Unknown Rx predniSONE [Deltasone] 40 tab PO QDAY #10 tab 11/05/20 Unknown Rx Ibuprofen [Motrin 800 MG tab] 800 mg PO Q8HR PRN #21 tablet 07/10/21 Unknown Rx Fluconazole [Diflucan TAB] 150 mg PO QDAY 1 Days #3 tablet 07/24/21 Unknown Rx metroNIDAZOLE [Flagyl] 500 mg PO BID 7 Days #14 tablet 07/24/21 Unknown Rx Meloxicam [Mobic] 7.5 mg PO QDAY #20 tablet 10/26/21 Unknown Rx ED Physical Exam - General Limitations: No Limitations General appearance: alert, in no apparent distress - Head Head exam: Present: atraumatic, normocephalic - Eye Eye exam: Present: normal appearance, PERRL, EOMI Pupils: Present: normal accommodation - ENT ENT exam: Present: normal exam, mucous membranes moist, TM's normal bilaterally - Neck Neck exam: Present: normal inspection, full ROM - Respiratory Respiratory exam: Present: normal lung sounds bilaterally. Absent: respiratory distress - Cardiovascular Cardiovascular Exam: Present: regular rate, normal rhythm. Absent: systolic murmur, diastolic murmur, rubs, gallop - GI/Abdominal GI/Abdominal exam: Present: soft, normal bowel sounds - Extremities Exam Extremities exam: Present: normal inspection, normal capillary refill - Back Exam Back exam: Present: normal inspection. Absent: CVA tenderness (R), CVA tenderness (L) - Neurological Exam Neurological exam: Present: alert, oriented X3, CN II-XII intact, normal gait - Psychiatric Psychiatric exam: Present: normal affect, normal mood. Absent: depressed, agitated, flat affect, manic, suicidal ideation - Skin Skin exam: Present: warm, dry, intact, normal color. Absent: rash ED Course Vital Signs 10/25/21 22:39 Temperature 98 F Pulse Rate 101 H Respiratory 16 Rate Blood Pressure 130/91 [Right] O2 Sat by Pulse 98 Oximetry ED Medical Decision Making - Lab Data Result diagrams: 10/25/21 23:07 Lab Results 10/25/21 10/25/21 10/25/21 Range/Units 23:07 23:07 23:07 WBC 6.6 (4.5-11.0) K/mm3 RBC 4.10 (3.65-5.03) M/mm3 Hgb 11.4 (10.1-14.3) gm/dl Hct 36.1 (30.3-42.9) % MCV 88 (79-97) fl MCH 28 (28-32) pg MCHC 32 (30-34) % RDW 15.7 H (13.2-15.2) % Plt Count 243 (140-440) K/mm3 Lymph % (Auto) 48.7 H (13.4-35.0) % [place] % (Auto) 6.7 (0.0-7.3) % Eos % (Auto) 1.1 (0.0-4.3) % Baso % (Auto) 0.7 (0.0-1.8) % Lymph # (Auto) 3.2 (1.2-5.4) K/mm3 [place] # (Auto) 0.4 (0.0-0.8) K/mm3 Eos # (Auto) 0.1 (0.0-0.4) K/mm3 Baso # (Auto) 0.0 (0.0-0.1) K/mm3 Seg Neutrophils % 42.8 (40.0-70.0) % Seg Neutrophils # 2.8 (1.8-7.7) K/mm3 HCG, Qual Negative (Negative) HCG, Quant < 2 (0-4) mIU/mL Urine Color (Yellow) Urine Turbidity (Clear) Urine pH (5.0-7.0) Ur Specific [place] (1.003-1.030) Urine Protein (Negative) mg/dL Urine Glucose (UA) (Negative) mg/dL Urine Ketones (Negative) mg/dL Urine Blood (Negative) Urine Nitrite (Negative) Ur Reducing Substances Urine Bilirubin (Negative) Urine Ictotest Urine Urobilinogen (<2.0) mg/dL Ur Leukocyte Esterase (Negative) Urine WBC (Auto) (0.0-6.0) /HPF Urine RBC (Auto) (0.0-6.0) /HPF U Epithel Cells (Auto) (0-13.0) /HPF Urine Mucus /HPF Blood Type 10/25/21 10/26/21 Range/Units 23:07 Unknown WBC (4.5-11.0) K/mm3 RBC (3.65-5.03) M/mm3 Hgb (10.1-14.3) gm/dl Hct (30.3-42.9) % MCV (79-97) fl MCH (28-32) pg MCHC (30-34) % RDW (13.2-15.2) % Plt Count (140-440) K/mm3 Lymph % (Auto) (13.4-35.0) % [place] % (Auto) (0.0-7.3) % Eos % (Auto) (0.0-4.3) % Baso % (Auto) (0.0-1.8) % Lymph # (Auto) (1.2-5.4) K/mm3 [place] # (Auto) (0.0-0.8) K/mm3 Eos # (Auto) (0.0-0.4) K/mm3 Baso # (Auto) (0.0-0.1) K/mm3 Seg Neutrophils % (40.0-70.0) % Seg Neutrophils # (1.8-7.7) K/mm3 HCG, Qual (Negative) HCG, Quant (0-4) mIU/mL Urine Color Yellow (Yellow) Urine Turbidity Clear (Clear) Urine pH 6.0 (5.0-7.0) Ur Specific [place] 1.035 H (1.003-1.030) Urine Protein 30 mg/dl (Negative) mg/dL Urine Glucose (UA) Negative (Negative) mg/dL Urine Ketones Trace (Negative) mg/dL Urine Blood Negative (Negative) Urine Nitrite Negative (Negative) Ur Reducing Substances Not Reportable Urine Bilirubin Negative (Negative) Urine Ictotest Not Reportable Urine Urobilinogen < 2.0 (<2.0) mg/dL Ur Leukocyte Esterase Negative (Negative) Urine WBC (Auto) 1.0 (0.0-6.0) /HPF Urine RBC (Auto) 7.0 (0.0-6.0) /HPF U Epithel Cells (Auto) < 1.0 (0-13.0) /HPF Urine Mucus Few /HPF Blood Type A POSITIVE - EKG Data Interpretation: no acute changes Critical care attestation.: If time is entered above; I have spent that time in minutes in the direct care of this critically ill patient, excluding procedure time. ED Disposition Clinical Impression: Non-compliance with treatment, Polyarthralgia, Dysmenorrhea Disposition: 01 HOME / SELF CARE / HOMELESS Is pt being admited?: No Does the pt Need Aspirin: No Condition: Stable Instructions: Osteoarthritis, Musculoskeletal Pain, How to Use Cold Therapy, [id number], Dysmenorrhea Prescriptions: Meloxicam [Mobic] 7.5 mg PO QDAY #20 tablet Referrals: GUILHERME NELSON MD [Primary Care Provider] - 3-5 Days [facility] [Provider Group] - 3-5 Days
[2021-10-26 05:58] VITALS: BP 138/78
== END 2021-10-26 05:55 | disposition home or self-care (01) ==
LOC: ED 22:36
DX: Z91.19 Patient's noncompliance with other medical treatment and regimen (principal); M25.50 Pain in unspecified joint; N94.6 Dysmenorrhea, unspecified
CPT/HCPCS: 36415; 81001; 84702; 84703; 85025; 86900; 86901; 96372; 99283; J1885